=== PATIENT | female | born 1945 | race Caucasian/White ===

== ENCOUNTER 2016-10-18 08:35 | Outpatient (CLI) | payer MEDICARE | END 2016-10-18 23:59 | DX: E78.2 Mixed hyperlipidemia (principal); E11.9 Type 2 diabetes mellitus without complications; Z79.899 Other long term (current) drug therapy ==

== ENCOUNTER 2016-12-31 11:20 | Outpatient (CLI) | payer MEDICARE | END 2016-12-31 11:21 | disposition home or self-care (01) | LOC: LAB.R 11:20 | PROVIDERS: ATTEND Internal Medicine | DX: N30.90 Cystitis, unspecified without hematuria (principal) | CPT/HCPCS: 87086 ==

== ENCOUNTER 2017-01-10 10:49 | Outpatient (CLI) | payer MEDICARE ==
--- NOTE | 2017-01-14 07:54 | Mammography Report ---
DIGITAL BILATERAL SCREENING MAMMOGRAM: 01/10/2017 CLINICAL HISTORY: A 71-year-old female in for routine screening mammogram. Patient does have a fami ly history with breast cancer. Patient had a daughter who had breast cancer at age 45. She has an a unt who had breast cancer. Patient has no breast surgical history. COMPARISON: 01/10/2007, 04/04/2008, 07/21/2009, 01/05/2011, 06/15/2012, 06/04/2013, 06/07/2014, 09/22, 10/21/2015 TECHNIQUE: Craniocaudad and oblique lateral views of each breast were obtained with Spre[employer] Full Fie ld digital mammography. FINDINGS: Moderately dense breasts are noted bilaterally. No significant clusters of calcification are seen. No suspicious masses are noted. No change is see n. IMPRESSION: BREASTS APPEAR RADIOGRAPHICALLY BENIGN. BIRADS CATEGORY 1 - NEGATIVE. RECOMMENDATIONS: Annual bilateral screening mammography. STANDARD QUALIFYING STATEMENTS 1. This examination was reviewed with the aid of Computer-Aided Detection (CAD). 2. A negative or benign imaging report should not delay biopsy if clinically suspicious findings are present. Consider surgical consultation if warranted. More than 5% of cancers are not identified by raul rudd. 3. Dense breasts may obscure an underlying neoplasm. JOB #: [id number] EXT JOB #:[id number]
== END 2017-01-10 10:50 | disposition home or self-care (01) ==
LOC: DI.N 10:49
PROVIDERS: ATTEND Physician Assistant Medical
DX: Z12.31 Encounter for screening mammogram for malignant neoplasm of breast (principal); Z80.3 Family history of malignant neoplasm of breast
CPT/HCPCS: 77067

== ENCOUNTER 2017-06-30 10:31 | Outpatient (CLI) | payer MEDICARE ==
--- NOTE | 2017-06-30 12:50 | XRAY Report ---
FOUR-VIEW LEFT KNEE: 06/30/2017 CLINICAL INDICATION: Fall, pain. FINDINGS: AP, lateral, bilateral oblique views of the left knee demonstrate mild osteoarthritis, wit h small osteophytes. There is no evidence of acute fracture or dislocation. No effusion is present. IMPRESSION: MILD LEFT KNEE OSTEOARTHRITIS. NO EVIDENCE OF ACUTE FRACTURE. JOB #: [id number] EXT JOB #:[id number]
== END 2017-06-30 10:32 | disposition home or self-care (01) ==
LOC: DI 10:31
PROVIDERS: ATTEND Physician Assistant Medical
DX: M17.12 Unilateral primary osteoarthritis, left knee (principal); Z91.81 History of falling

== ENCOUNTER 2017-08-03 14:49 | Outpatient (CLI) | payer MEDICARE ==
[2017-08-03 12:47] LABS: BASOPHILS # (AUTO) 0.1 10^3/uL (0.0-0.1); BASOPHILS % (AUTO) 0.6 %; EOSINOPHILS # (AUTO) 0.2 10^3/uL (0.0-0.7); EOSINOPHILS % (AUTO) 1.7 %; HGB - HEMOGLOBIN 14.2 g/dL (12.0-16.0); LYMPHOCYTES # (AUTO) 3.3 10^3/uL (1.5-3.5); LYMPHOCYTES % (AUTO) 30.6 %; MEAN CORPUSCULAR HEMOGLOBIN 32.4 pg (27.0-31.0); MEAN CORPUSCULAR HGB CONC 33.8 g/dL (32.0-36.0); MEAN CORPUSCULAR VOLUME 95.9 fL (81.0-99.0); MEAN PLATELET VOLUME 7.8 fL (7.9-10.8); MONOCYTES # (AUTO) 0.7 10^3/uL (0.0-1.0); MONOCYTES % (AUTO) 6.6 %; NEUTROPHILS # (AUTO) 6.5 10^3/uL (1.5-6.6); NEUTROPHILS % (AUTO) 60.5 %; NUCLEATED RED BLOOD CELLS AUTO 0.1 /100WBC; RED BLOOD COUNT 4.38 10^6/uL (4.20-5.40); RED CELL DISTRIBUTION WIDTH 12.8 % (12.0-15.0); UNCORRECTED WHITE BLOOD COUNT 10.7 x10^3/uL; WHITE BLOOD COUNT 10.7 x10^3/uL (4.8-10.8)
[2017-08-03 13:07] LABS: ALBUMIN/GLOBULIN RATIO 1.5 (1.0-2.2); BILIRUBIN,TOTAL 0.8 mg/dL (0.2-1.0); BUN - BLOOD UREA NITROGEN 12 mg/dL (6-20); CALCIUM 9.6 mg/dL (8.5-10.3); CARBON DIOXIDE - CO2 30 mmol/L (21-32); CHLORIDE 95 mmol/L (101-111); CHOL/HDL RATIO 2.4 (<4.4); CHOLESTEROL 138 mg/dL; CREATININE 0.7 mg/dL (0.4-1.0); GFR - MDRD 82 (>89); GLUCOSE 103 mg/dL (70-100); HDL CHOLESTEROL 58 mg/dL; LDL/HDL RATIO 0.7 (<4.4); POTASSIUM 3.4 mmol/L (3.5-5.0); SODIUM 136 mmol/L (135-145); TOTAL PROTEIN 6.8 g/dL (6.7-8.2); TRIGLYCERIDES 194 mg/dL; VLDL CHOLESTEROL 39 mg/dL
[2017-08-03 16:10] LABS: HEMOGLOBIN A1C 0.69 g/dL
== END 2017-08-03 14:50 | disposition home or self-care (01) ==
LOC: LAB.N 14:49
PROVIDERS: ATTEND Physician Assistant Medical
DX: E55.9 Vitamin D deficiency, unspecified (principal); Z79.899 Other long term (current) drug therapy; E78.2 Mixed hyperlipidemia; E11.9 Type 2 diabetes mellitus without complications; F32.9 Major depressive disorder, single episode, unspecified; M79.7 Fibromyalgia; I10 Essential (primary) hypertension; Z11.59 Encounter for screening for other viral diseases; Z72.89 Other problems related to lifestyle
CPT/HCPCS: 36415; 80053; 80061; 82306; 83036; 84443; 85025; 86803

== ENCOUNTER 2017-08-24 02:31 | Outpatient (CLI) | payer MEDICARE | END 2017-08-24 02:32 | disposition EMS.NT | LOC: EMS 02:31 | PROVIDERS: ATTEND Surgery | DX: R06.00 Dyspnea, unspecified (principal) ==

== ENCOUNTER 2017-08-29 09:41 | Emergency (ER) | payer MEDICARE ==
--- NOTE | 2017-08-29 11:38 | XRAY Preliminary Report ---
Exam: XR CHEST 2 VIEW X-RAY IMPRESSION: 1. No acute cardiopulmonary findings or change. [facility] SITE ID: [id number]
--- NOTE | 2017-08-29 11:38 | XRAY Report ---
EXAM: CHEST RADIOGRAPHY EXAM DATE: 08/29/2017 10:47 AM. CLINICAL HISTORY: Cough, shortness of breath. COMPARISON: 03/15/2016, 07/16/2014. TECHNIQUE: 2 views. FINDINGS: Lungs/Pleura: Small patchy opacity left base near the cardiac apex appears similar to 07/16/2014, con sistent with mildly prominent epicardial fat pad. Lungs appear unchanged. No consolidation or vascula r congestion. No pneumothorax or pleural effusion. Mediastinum: Normal cardiomediastinal silhouette. Other: No acute fracture. IMPRESSION: 1. No acute cardiopulmonary findings or change. [facility] Referring Provider Line: [phone] SITE ID: [id number]
--- NOTE | 2017-08-29 11:42 | ED Physician Documentation ---
PD HPI NVD - Stated complaint Stated Complaint: COUGH,DIARRHEA,FLU LIKE SYMPTOMS - Chief complaint Chief Complaint: Resp - History obtained from History obtained from: Patient - History of Present Illness Timing - onset: How many days ago (3-4 days ago, abrupt onset of chills, weakness, aches, nausea, diarrhea and cough. Poor appetite and feeling dehydrated. Seen by PCP this morning and referred to ED for further eval/labs and treatment, likely IV fluids and meds.) Timing - duration: Days Timing - details: Abrupt onset, Still present Associated symptoms: Fever, Loss of appetite, Weight loss (several lbs in just few days.). No: Abdominal pain, Hematemesis, Melena, Near syncope / syncope, Dysuria Contributing factors: No: Sick contact, Bad food, Travel, Recent antibiotics Improved by: No: Eating, Vomiting Worsened by: Eating Similar symptoms before: Has not had sx before Recently seen: Clinic Review of Systems Constitutional: reports: Fever, Chills, Myalgias Nose: reports: Congestion. denies: Rhinorrhea / runny nose Throat: denies: Sore throat Cardiac: denies: Chest pain / pressure, Palpitations Respiratory: reports: Dyspnea, Cough GI: reports: Nausea, Vomiting (just couple times), Diarrhea. denies: Abdominal Pain : denies: Dysuria, Frequency Skin: denies: Rash, Lesions Musculoskeletal: denies: Neck pain, Back pain, Extremity swelling Neurologic: reports: Generalized weakness. denies: Focal weakness, Numbness, Near syncope, Confused, Altered mental status, Headache Endocrine: reports: Weight loss. denies: Polydypsia, Easy bruising / bleeding Immunocompromised: denies: Immunocompromised PD PAST MEDICAL HISTORY - Past Medical History Past Medical History: Yes Cardiovascular: Hypertension, High cholesterol Respiratory: COPD Endocrine/Autoimmune: Type 2 diabetes - Present Medications Home Medications: Ambulatory Orders Medication Instructions Recorded Confirmed Albuterol Sulfate [Ventolin Hfa] 2 puffs IH Q4H PRN #1 hfa.aer.ad 03/15/16 LORazepam [Ativan] 0.5 mg PO Q6H PRN #7 tablet 03/15/16 Lisinopril 03/15/16 Simvastatin 03/15/16 hydroCHLOROthiazide 03/15/16 [Hydrochlorothiazide] metFORMIN [Glucophage] 03/15/16 Albuterol Sulf [Ventolin Hfa 1 - 2 puffs INH Q4HR PRN #1 inhaler 08/29/17 Inhaler] Dexamethasone [Decadron] 4 mg PO DAILY #5 tablet 08/29/17 Diphenoxylate HCl/Atropine 1 each PO Q6H PRN #12 tablet 08/29/17 [Diphenoxylate-Atrop 2.5-0.025] Ondansetron Odt [Zofran] 4 mg TL Q6H PRN #15 tablet 08/29/17 Potassium Chloride 10 meq PO DAILY #10 tablet.er 08/29/17 - Allergies Allergies/Adverse Reactions: Allergies Allergy/AdvReac Type Severity Reaction Status Date / Time No Known Drug Allergies Allergy Verified 03/15/16 14:59 - Social History Does the pt smoke?: Yes Smoking Status: Current every day smoker Does the pt drink ETOH?: No Does the pt have substance abuse?: No - Family History Family history: reports: Non contributory PD ED PE NORMAL - Vitals Vital signs reviewed: Yes - General General: Alert and oriented X 3, Well developed/nourished - HEENT HEENT: Ears normal, Pharynx benign. No: Moist mucous membranes - Neck Neck: Supple, no meningeal sign, No adenopathy - Cardiac Cardiac: RRR, No murmur - Respiratory Respiratory: No respiratory distress. No: Clear bilaterally (some scattered wheezes) - Abdomen Abdomen: Soft, Non tender, Non distended, No organomegaly. No: Normal bowel sounds (diminished) - Female Female : Deferred - Rectal Rectal: Deferred - Back Back: No CVA TTP - Derm Derm: Normal color, Warm and dry - Extremities Extremities: No tenderness to palpate, Normal ROM s pain, No edema, No calf tenderness / cord - Neuro Neuro: Alert and oriented X 3, hydraulic tester 2-12 intact, No motor deficit, Normal speech Eye Opening: Spontaneous Motor: Obeys Commands Verbal: Oriented GCS Score: 15 - Psych Psych: Normal mood, Normal affect Results - Vitals Vitals: Vital Signs - 24 hr 08/29/17 08/29/17 08/29/17 09:57 12:00 14:07 Temperature 36.3 C L 36.4 C L Heart Rate 91 93 83 Respiratory 18 20 12 Rate Blood Pressure 114/65 111/65 119/74 O2 Saturation 93 95 95 08/29/17 08/29/17 16:00 16:55 Temperature 36 C L 36.3 C L Heart Rate 74 75 Respiratory 18 18 Rate Blood Pressure 108/63 133/74 H O2 Saturation 95 95 Oxygen O2 Source Room air - Labs Labs: Microbiology 08/29/17 12:07 Clostridium difficile (PCR) - Final Stool 08/29/17 12:07 Campylobacter Antigen Assay - Final Stool - Watery Consistency Laboratory Tests 08/29/17 08/29/17 08/29/17 12:10 12:10 12:10 WBC 10.1 RBC 5.11 Hgb 16.4 H Hct 48.0 H MCV 94.0 MCH 32.1 H MCHC 34.2 RDW 12.9 Plt Count 275 MPV 7.7 L Neut # 6.6 Lymph # 2.4 [place] # 1.1 H Eos # 0.0 Baso # 0.1 Absolute Nucleated RBC 0.01 Nucleated RBC % 0.1 Sodium 136 Potassium 2.9 L Chloride 90 L Carbon Dioxide 23 Anion Gap 23.0 H BUN 33 H Creatinine 1.0 Estimated GFR (MDRD) 55 L Glucose 124 H Calcium 9.3 Magnesium 1.9 Total Bilirubin 1.0 AST 33 ALT 26 Alkaline Phosphatase 74 Total Protein 7.5 Albumin 4.4 Globulin 3.1 Albumin/Globulin Ratio 1.4 Lipase 34 - Rads (name of study) chest Radiology: Prelim report reviewed (no infiltrates/acute process) PD MEDICAL DECISION MAKING - ED course Complexity details: reviewed results, re-evaluated patient (feeling improved moderately but still ill feeling after meds and fluids. Taking orally okay. Sounds flu-like but with prominent diarrhea, so did C.Diff and stool culture, which are prelim negative. ), considered differential, d/w patient Departure - Departure Disposition: 01 Home, Self Care Clinical Impression: Dehydration, Hypokalemia, Flu-like symptoms Upper respiratory infection Qualifiers: URI type: unspecified URI Qualified Code(s): J06.9 - Acute upper respiratory infection, unspecified Diarrhea Qualifiers: Diarrhea type: presumed infectious Qualified Code(s): R19.7 - Diarrhea, unspecified Condition: Stable Record reviewed to determine appropriate education?: Yes Follow-Up: Indu Zhang PA-C [Primary Care Provider] - Prescriptions: Albuterol Sulf [Ventolin Hfa Inhaler] 1 - 2 puffs INH Q4HR PRN #1 inhaler PRN Reason: Shortness Of Air/Wheezing Dexamethasone [Decadron] 4 mg PO DAILY #5 tablet Diphenoxylate HCl/Atropine [Diphenoxylate-Atrop 2.5-0.025] 1 each PO Q6H PRN # 12 tablet PRN Reason: Diarrhea Ondansetron Odt [Zofran] 4 mg TL Q6H PRN #15 tablet PRN Reason: Nausea / Vomiting Potassium Chloride 10 meq PO DAILY #10 tablet.er Comments: Small frequent fluids and bland food. Use ondansetron if needed for nausea. Lomotil if needed for diarrhea though decrease the use of that if the diarrhea is lessening so does not cause rebound constipation. This likely is a viral type illness. For your cough, use albuterol inhaler 2 puffs 4 times a day for the next 7-10 days. Add Decadron steroid for the inflammation of the airways daily for 5 more days. Follow-up with your primary care in the next 2-3 days for recheck. Return sooner if worse. Your potassium was also low likely from the diarrhea and perhaps some of your medications. Add a potassium supplement daily for the next week. Discharge Date/Time: 08/29/17 17:00
[2017-08-29 12:15] LABS: BASOPHILS # (AUTO) 0.1 10^3/uL (0.0-0.1); BASOPHILS % (AUTO) 0.8 %; EOSINOPHILS % (AUTO) 0.1 %; HGB - HEMOGLOBIN 16.4 g/dL (12.0-16.0); LYMPHOCYTES # (AUTO) 2.4 10^3/uL (1.5-3.5); LYMPHOCYTES % (AUTO) 23.3 %; MEAN CORPUSCULAR HEMOGLOBIN 32.1 pg (27.0-31.0); MEAN CORPUSCULAR HGB CONC 34.2 g/dL (32.0-36.0); MEAN PLATELET VOLUME 7.7 fL (7.9-10.8); MONOCYTES # (AUTO) 1.1 10^3/uL (0.0-1.0); MONOCYTES % (AUTO) 10.8 %; NEUTROPHILS # (AUTO) 6.6 10^3/uL (1.5-6.6); PLT - PLATELET COUNT 275 10^3/uL (130-450); RED BLOOD COUNT 5.11 10^6/uL (4.20-5.40); RED CELL DISTRIBUTION WIDTH 12.9 % (12.0-15.0); WHITE BLOOD COUNT 10.1 x10^3/uL (4.8-10.8)
[2017-08-29 12:29] LABS: ALBUMIN 4.4 g/dL (3.2-5.5); ALBUMIN/GLOBULIN RATIO 1.4 (1.0-2.2); CALCIUM 9.3 mg/dL (8.5-10.3); TOTAL PROTEIN 7.5 g/dL (6.7-8.2)
[2017-08-29] MEDS ORDERED: SODIUM CHLORIDE 0.9% 1,000 ML IV ONE (12:52)
[2017-08-29] MEDS ORDERED: DIPHENOX/ATROPINE 2.5/0.025 MG TABLET PO STA (12:52)
[2017-08-29] MEDS ORDERED: ONDANSETRON 4 MG/2 ML VIAL IVP STA (12:52)
[2017-08-29] MEDS ORDERED: POTASSIUM CHLOR 10 MEQ/100 ML 10 MEQ/100 ML BAG IV ONE (14:13)
[2017-08-29] MEDS ORDERED: DEXAMETHASONE 10 MG/ML VIAL IVP STA (16:21)
[2017-08-29 16:56] VITALS: BP 133/74
== END 2017-08-29 17:00 | disposition home or self-care (01) ==
LOC: ED 09:41
DX: E86.0 Dehydration (principal); E87.6 Hypokalemia; J06.9 Acute upper respiratory infection, unspecified; R19.7 Diarrhea, unspecified; J44.9 Chronic obstructive pulmonary disease, unspecified; E11.9 Type 2 diabetes mellitus without complications; Z79.84 Long term (current) use of oral hypoglycemic drugs; I10 Essential (primary) hypertension; F17.200 Nicotine dependence, unspecified, uncomplicated
CPT/HCPCS: 36415; 71046; 80053; 83690; 83735; 85025; 87045; 87046; 87493; 96365; 96375; 99284; A9270

== ENCOUNTER 2017-09-06 10:30 | Outpatient (CLI) | payer MEDICARE ==
[2017-09-06 13:22] LABS: ALBUMIN 3.9 g/dL (3.2-5.5); ALBUMIN/GLOBULIN RATIO 1.4 (1.0-2.2); BILIRUBIN,TOTAL 0.5 mg/dL (0.2-1.0); CALCIUM 9.2 mg/dL (8.5-10.3); CREATININE 0.8 mg/dL (0.4-1.0); TOTAL PROTEIN 6.6 g/dL (6.7-8.2)
== END 2017-09-06 10:31 | disposition home or self-care (01) ==
LOC: LAB.N 10:30
PROVIDERS: ATTEND Physician Assistant Medical
DX: E87.6 Hypokalemia (principal)
CPT/HCPCS: 36415; 80053

== ENCOUNTER 2017-09-08 08:00 | Outpatient (CLI) | payer MEDICARE | END 2017-09-08 08:01 | disposition home or self-care (01) | LOC: LAB.R 08:00 | PROVIDERS: ATTEND Internal Medicine | DX: N30.00 Acute cystitis without hematuria (principal) | CPT/HCPCS: 87086 ==

== ENCOUNTER 2017-09-22 08:00 | Outpatient (CLI) | payer MEDICARE ==
[2017-09-22 19:18] LABS: CALCIUM 9.4 mg/dL (8.5-10.3); CREATININE 0.7 mg/dL (0.4-1.0)
== END 2017-09-22 08:01 | disposition home or self-care (01) ==
LOC: LAB.N 08:00
PROVIDERS: ATTEND Internal Medicine
DX: E87.6 Hypokalemia (principal)
CPT/HCPCS: 36415; 80048

== ENCOUNTER 2017-10-12 11:59 | Outpatient (CLI) | payer MEDICARE | END 2017-10-12 12:00 | disposition EMS.NT | LOC: EMS 11:59 | PROVIDERS: ATTEND Surgery | DX: R45.89 Other symptoms and signs involving emotional state (principal) ==

== ENCOUNTER 2017-10-12 12:49 | Emergency (ER) | payer MEDICARE ==
[2017-10-12 13:01] VITALS: BP 147/103
--- NOTE | 2017-10-12 13:57 | ED Physician Documentation ---
PD HPI MHE - Stated complaint Stated Complaint: SI - Chief complaint Chief Complaint: MHE - History obtained from History obtained from: Patient, Friend - History of Present Illness Primary symptom: Suicidal ideation Timing - onset: Other ("a while") Pain level max: 0 Pain level now: 0 Contributing factors: Other (states her rent is being increased and she will be homeless) Similar symptoms before: Diagnosis (depression.) - Additional information Additional information: Patient is a 72-year-old female with a long-standing history of depression. She states she has been on citalopram 40 mg for the last several years. No changes to this. Has not attempted suicide in the past but has seen several counselors. Does not currently have a counselor. States that her rent is being raised and she will soon be homeless so she called her friend and said she is tired of "climbing mountains". She states that she feels suicidal now but does not have a plan. Review of Systems Ten Systems: 10 systems reviewed and negative Constitutional: denies: Fever, Chills Ears: denies: Ear pain Nose: denies: Rhinorrhea / runny nose, Congestion Throat: denies: Sore throat Cardiac: denies: Chest pain / pressure Respiratory: denies: Cough GI: denies: Nausea, Vomiting, Diarrhea Skin: denies: Rash Musculoskeletal: denies: Neck pain, Back pain Neurologic: denies: Headache Psychiatric: denies: Hallucinations PD PAST MEDICAL HISTORY - Past Medical History Past Medical History: Yes Cardiovascular: Hypertension, High cholesterol Respiratory: COPD Endocrine/Autoimmune: Type 2 diabetes - Present Medications Home Medications: Ambulatory Orders Medication Instructions Recorded Confirmed LORazepam [Ativan] 0.5 mg PO Q6H PRN #7 tablet 03/15/16 Lisinopril 03/15/16 Simvastatin 03/15/16 hydroCHLOROthiazide 03/15/16 [Hydrochlorothiazide] metFORMIN [Glucophage] 03/15/16 Albuterol Sulf [Ventolin Hfa 1 - 2 puffs INH Q4HR PRN #1 inhaler 08/29/17 Inhaler] Diphenoxylate HCl/Atropine 1 each PO Q6H PRN #12 tablet 08/29/17 [Diphenoxylate-Atrop 2.5-0.025] Potassium Chloride 10 meq PO DAILY #10 tablet.er 08/29/17 Citalopram [CeleXA] 10 mg PO ONCE 10/12/17 10/12/17 - Allergies Allergies/Adverse Reactions: Allergies Allergy/AdvReac Type Severity Reaction Status Date / Time No Known Drug Allergies Allergy Verified 10/12/17 13:01 - Social History Does the pt smoke?: Yes Smoking Status: Current every day smoker Does the pt drink ETOH?: No Does the pt have substance abuse?: No PD ED PE NORMAL - Vitals Vital signs reviewed: Yes - General General: Alert and oriented X 3, No acute distress - HEENT HEENT: Moist mucous membranes - Neck Neck: Supple, no meningeal sign - Cardiac Cardiac: RRR, Strong equal pulses - Respiratory Respiratory: No respiratory distress, Clear bilaterally - Abdomen Abdomen: Soft, Non tender, Non distended - Derm Derm: Warm and dry - Neuro Neuro: Alert and oriented X 3 - Psych Psych: Other (angry, irritable) Results - Vitals Vitals: Vital Signs - 24 hr 10/12/17 10/12/17 12:59 15:08 Temperature 36.4 C L Heart Rate 84 78 Respiratory 16 16 Rate Blood Pressure 147/103 H O2 Saturation 98 Oxygen O2 Source Room air - Labs Labs: Laboratory Tests 10/12/17 10/12/17 13:18 13:18 WBC 9.4 RBC 4.47 Hgb 14.6 Hct 42.9 MCV 95.9 MCH 32.6 H MCHC 34.0 RDW 13.3 Plt Count 301 MPV 7.1 L Neut # 5.6 Lymph # 2.6 [place] # 0.9 Eos # 0.2 Baso # 0.1 Absolute Nucleated RBC 0.00 Nucleated RBC % 0.0 Sodium 137 Potassium 3.6 Chloride 99 L Carbon Dioxide 27 Anion Gap 11.0 BUN 15 Creatinine 0.6 Estimated GFR (MDRD) 98 Glucose 110 H Calcium 9.3 Total Bilirubin 0.8 AST 23 ALT 18 Alkaline Phosphatase 68 Total Protein 6.8 Albumin 3.9 Globulin 2.9 Albumin/Globulin Ratio 1.3 Lipase 24 Salicylates < 6.0 Acetaminophen < 10 L Ethyl Alcohol < 5.0 PD MEDICAL DECISION MAKING - ED course Complexity details: reviewed results, re-evaluated patient, considered differential, d/w patient, d/w family, d/w business solutions consultant ED course: Patient is medically clear for psychiatric care. Social work was consulted and evaluated the patient. Her family member will give her the difference in rent so that she can stay in her apartment. She is unable to contract for safety and will follow-up as an outpatient with a psychiatrist. She is comfortable with this plan as is her friend. Patient counseled regarding signs and symptoms for which I believe and urgent re-evaluation would be necessary. Patient with good understanding of and agreement to plan and is comfortable going home at this time This document was made in part using voice recognition software. While efforts are made to proofread this document, sound alike and grammatical errors may occur. Departure - Departure Disposition: 01 Home, Self Care Clinical Impression: Depression Qualifiers: Depression Type: unspecified Qualified Code(s): F32.9 - Major depressive disorder, single episode, unspecified Condition: Good Instructions: ED Depression Follow-Up: Indu Zhang PA-C [Primary Care Provider] - Within 1 week Comments: Return if you worsen. Follow up with your doctor for further care. Crisis Line and is available to talk to someone [email or web address] is also available to chat with someone online if you prefer. There are also many resources on this website and apps for your phone to help with your mental health Discharge Date/Time: 10/12/17 15:09
[2017-10-12 13:58] LABS: BASOPHILS # (AUTO) 0.1 10^3/uL (0.0-0.1); BASOPHILS % (AUTO) 1.3 %; EOSINOPHILS # (AUTO) 0.2 10^3/uL (0.0-0.7); EOSINOPHILS % (AUTO) 1.9 %; HGB - HEMOGLOBIN 14.6 g/dL (12.0-16.0); LYMPHOCYTES # (AUTO) 2.6 10^3/uL (1.5-3.5); LYMPHOCYTES % (AUTO) 27.8 %; MEAN CORPUSCULAR HEMOGLOBIN 32.6 pg (27.0-31.0); MEAN CORPUSCULAR VOLUME 95.9 fL (81.0-99.0); MEAN PLATELET VOLUME 7.1 fL (7.9-10.8); MONOCYTES # (AUTO) 0.9 10^3/uL (0.0-1.0); MONOCYTES % (AUTO) 9.4 %; NEUTROPHILS # (AUTO) 5.6 10^3/uL (1.5-6.6); NEUTROPHILS % (AUTO) 59.6 %; PLT - PLATELET COUNT 301 10^3/uL (130-450); RED BLOOD COUNT 4.47 10^6/uL (4.20-5.40); RED CELL DISTRIBUTION WIDTH 13.3 % (12.0-15.0); WHITE BLOOD COUNT 9.4 x10^3/uL (4.8-10.8)
[2017-10-12 14:13] LABS: ALBUMIN 3.9 g/dL (3.2-5.5); ALBUMIN/GLOBULIN RATIO 1.3 (1.0-2.2); ALKALINE PHOSPHATASE 68 IU/L (42-121); ALT ALANINE AMINOTRANSFERASE 18 IU/L (10-60); AST ASPARTATE AMINOTRANSFERASE 23 IU/L (10-42); BILIRUBIN,TOTAL 0.8 mg/dL (0.2-1.0); BUN - BLOOD UREA NITROGEN 15 mg/dL (6-20); CALCIUM 9.3 mg/dL (8.5-10.3); CARBON DIOXIDE - CO2 27 mmol/L (21-32); CHLORIDE 99 mmol/L (101-111); CREATININE 0.6 mg/dL (0.4-1.0); GFR - MDRD 98 (>89); GLUCOSE 110 mg/dL (70-100); LIPASE 24 U/L (22-51); SALICYLATE < 6.0 mg/dL; SODIUM 137 mmol/L (135-145); TOTAL PROTEIN 6.8 g/dL (6.7-8.2)
[2017-10-12 14:14] LABS: ACETAMINOPHEN < 10 ug/mL (10-30)
== END 2017-10-12 15:09 | disposition home or self-care (01) ==
LOC: ED 12:49
DX: F32.9 Major depressive disorder, single episode, unspecified (principal); I10 Essential (primary) hypertension; E11.9 Type 2 diabetes mellitus without complications; E78.00 Pure hypercholesterolemia, unspecified; Z79.84 Long term (current) use of oral hypoglycemic drugs
CPT/HCPCS: 80053; 80307; 83690; 85025; 99283; G0480; 36415; 80320; 80329

== ENCOUNTER 2018-04-03 10:35 | Outpatient (CLI) | payer MEDICARE ==
--- NOTE | 2018-04-04 11:56 | Mammography Report ---
Procedure Date: 04/03/2018 Accession Number: [id number] / [id number] Procedure: MGN - Screening Mammo Dig Bilat CPT Code: FULL RESULT: EXAM: Screening Mammo Dig Bilat DATE: 04/03/2018 10:55 AM CLINICAL HISTORY: 72-year-old female with family history of breast cancer in her daughter at age 45. TECHNIQUE: Bilateral CC and MLO views were obtained. COMPARISON: 01/10/2017, 10/01/2015, 06/07/2014, 06/04/2013. FINDINGS: The breasts demonstrate scattered fibroglandular densities bilaterally. Typically benign coarse bilateral calcifications are identified. No suspicious masses, clustered microcalcifications, or regions of architectural distortion are identified. IMPRESSION: Benign findings RECOMMENDATION: Routine annual screening unless otherwise clinically indicated. BIRADS CATEGORY 2: Benign findings STANDARD QUALIFYING STATEMENTS: 1. This examination was reviewed with the aid of Computer-Aided Detection (CAD). 2. A negative or benign imaging report should not delay biopsy if clinically suspicious findings are present. Consider surgical consultation if warrented. More than 5% of cancers are not identified by imaging. 3. Dense breasts may obscure an underlying neoplasm.
== END 2018-04-03 10:36 | disposition home or self-care (01) ==
LOC: DI.N 10:35
PROVIDERS: ATTEND Radiology Diagnostic Radiology
DX: Z12.31 Encounter for screening mammogram for malignant neoplasm of breast (principal); Z80.3 Family history of malignant neoplasm of breast
CPT/HCPCS: 77067

== ENCOUNTER 2018-11-08 10:02 | Outpatient (CLI) | payer MEDICARE | END 2018-11-08 10:03 | disposition EMS.NT | LOC: EMS 10:02 | PROVIDERS: ATTEND Surgery | DX: Z03.89 Encounter for observation for other suspected diseases and conditions ruled out (principal) ==

== ENCOUNTER 2018-11-13 08:00 | Outpatient (CLI) | payer MEDICARE ==
[2018-11-13 18:50] LABS: BASOPHILS % (AUTO) 0.5 %; EOSINOPHILS # (AUTO) 0.2 10^3/uL (0.0-0.7); EOSINOPHILS % (AUTO) 1.9 %; HGB - HEMOGLOBIN 14.4 g/dL (12.0-16.0); LYMPHOCYTES # (AUTO) 3.1 10^3/uL (1.5-3.5); LYMPHOCYTES % (AUTO) 39.1 %; MEAN CORPUSCULAR HEMOGLOBIN 32.5 pg (27.0-31.0); MEAN CORPUSCULAR HGB CONC 33.3 g/dL (32.0-36.0); MEAN CORPUSCULAR VOLUME 97.7 fL (81.0-99.0); MEAN PLATELET VOLUME 7.7 fL (7.9-10.8); MONOCYTES # (AUTO) 0.8 10^3/uL (0.0-1.0); MONOCYTES % (AUTO) 9.7 %; NEUTROPHILS # (AUTO) 3.9 10^3/uL (1.5-6.6); NEUTROPHILS % (AUTO) 48.8 %; PLT - PLATELET COUNT 336 10^3/uL (130-450); RED BLOOD COUNT 4.43 10^6/uL (4.20-5.40); RED CELL DISTRIBUTION WIDTH 12.6 % (12.0-15.0); WHITE BLOOD COUNT 7.9 x10^3/uL (4.8-10.8)
[2018-11-13 19:10] LABS: ALBUMIN 3.9 g/dL (3.2-5.5); ALBUMIN/GLOBULIN RATIO 1.3 (1.0-2.2); BILIRUBIN,TOTAL 0.3 mg/dL (0.2-1.0); CALCIUM 9.3 mg/dL (8.5-10.3); CREATININE 0.7 mg/dL (0.4-1.0); TOTAL PROTEIN 6.8 g/dL (6.7-8.2)
[2018-11-13 19:50] LABS: HB2 TOTAL 15.7 g/dL; HEMOGLOBIN A1C 0.73 g/dL; HEMOGLOBIN A1C % 6.4 % (4.6-6.2)
== END 2018-11-13 23:59 | disposition home or self-care (01) ==
LOC: LAB.N 08:00
PROVIDERS: ATTEND Family Medicine
DX: E11.9 Type 2 diabetes mellitus without complications (principal); M15.9 Polyosteoarthritis, unspecified; I10 Essential (primary) hypertension
CPT/HCPCS: 36415; 80053; 83036; 84443; 85025

== ENCOUNTER 2019-01-04 13:59 | Emergency (ER) | payer MEDICARE ==
[2019-01-04] MEDS ORDERED: KETOROLAC 30 MG/ML VIAL IVP STA (14:28)
--- NOTE | 2019-01-04 14:30 | ED Physician Documentation ---
PD HPI ABD PAIN - Stated complaint Stated Complaint: PAIN IN UPPER LEFT QUADRANT - Chief complaint Chief Complaint: Abd Pain - History obtained from History obtained from: Patient - History of Present Illness Timing - onset: Other (73-year-old woman who has not had a colonoscopy she thinks at least 5 years. She has a history of cholecystectomy and tubal or ligation. Over the last with 6 weeks she is noticed a change in stool caliber. Where her stools used to be very regular, they have become smaller in caliber, sometimes explosive and sometimes constipated. Over the last 3 weeks she has had increasing dull left-sided abdominal pain. She notes no weight loss.) Review of Systems Ten Systems: 10 systems reviewed and negative Constitutional: denies: Fever, Chills Throat: reports: Reviewed and negative Cardiac: reports: Reviewed and negative Respiratory: reports: Reviewed and negative PD PAST MEDICAL HISTORY - Past Medical History Cardiovascular: Hypertension, High cholesterol Respiratory: COPD Endocrine/Autoimmune: Type 2 diabetes - Present Medications Home Medications: Ambulatory Orders Medication Instructions Recorded Confirmed LORazepam [Ativan] 0.5 mg PO Q6H PRN #7 tablet 03/15/16 Lisinopril 03/15/16 Simvastatin 03/15/16 hydroCHLOROthiazide 03/15/16 [Hydrochlorothiazide] metFORMIN [Glucophage] 03/15/16 Albuterol Sulf [Ventolin Hfa 1 - 2 puffs INH Q4HR PRN #1 inhaler 08/29/17 Inhaler] Diphenoxylate HCl/Atropine 1 each PO Q6H PRN #12 tablet 08/29/17 [Diphenoxylate-Atrop 2.5-0.025] Potassium Chloride 10 meq PO DAILY #10 tablet.er 08/29/17 Citalopram [CeleXA] 10 mg PO ONCE 10/12/17 10/12/17 Hydrocodone/Acetaminophen 1 - 2 each PO Q6H PRN #14 tablet 01/04/19 [Hydrocodon-Acetaminophen 5-325] Ibuprofen [Motrin] 800 mg PO Q8H PRN #30 tablet 01/04/19 - Allergies Allergies/Adverse Reactions: Allergies Allergy/AdvReac Type Severity Reaction Status Date / Time Sulfa (Sulfonamide Allergy Itching Verified 01/04/19 14:13 Antibiotics) - Social History Does the pt smoke?: Yes Smoking Status: Current every day smoker Does the pt drink ETOH?: No Does the pt have substance abuse?: No - Family History Family history: reports: Non contributory PD ED PE NORMAL - Vitals Vital signs reviewed: Yes - General General: Alert and oriented X 3, No acute distress - HEENT HEENT: PERRL, EOMI - Neck Neck: Supple, no meningeal sign, No bony TTP - Cardiac Cardiac: RRR, No murmur - Respiratory Respiratory: No respiratory distress, Clear bilaterally - Abdomen Abdomen: Other (Hyperactive bowel tones with very mild left-sided tenderness but no surgical signs, no masses) - Back Back: No CVA TTP, No spinal TTP - Derm Derm: Normal color, Warm and dry - Extremities Extremities: No edema, No calf tenderness / cord - Neuro Neuro: Alert and oriented X 3, Normal speech Results - Vitals Vitals: Vital Signs - 24 hr 01/04/19 01/04/19 14:06 16:55 Temperature 36.8 C 36.6 C Heart Rate 80 61 Respiratory 16 16 Rate Blood Pressure 151/83 H 126/84 H O2 Saturation 98 95 Oxygen O2 Source Room air - Labs Labs: Laboratory Tests 01/04/19 01/04/19 01/04/19 14:50 14:50 16:07 WBC 8.8 RBC 4.54 Hgb 14.6 Hct 43.7 MCV 96.1 MCH 32.2 H MCHC 33.5 RDW 12.7 Plt Count 291 MPV 7.1 L Neut # (Auto) 5.1 Lymph # (Auto) 2.7 [place] # (Auto) 0.7 Eos # (Auto) 0.2 Baso # (Auto) 0.1 Absolute Nucleated RBC 0.00 Nucleated RBC % 0.0 Sodium 139 Potassium 3.6 Chloride 101 Carbon Dioxide 27 Anion Gap 11.0 BUN 20 Creatinine 0.8 Estimated GFR (MDRD) 70 L Glucose 111 H Calcium 10.2 Total Bilirubin 0.4 AST 24 ALT 19 Alkaline Phosphatase 87 Total Protein 7.0 Albumin 4.3 Globulin 2.7 Albumin/Globulin Ratio 1.6 Lipase 42 Urine Color YELLOW Urine Clarity CLOUDY Urine pH 6.0 Ur Specific [place] 1.025 Urine Protein 100 H Urine Glucose (UA) NEGATIVE Urine Ketones TRACE Urine Occult Blood LARGE H Urine Nitrite NEGATIVE Urine Bilirubin SMALL H Urine Urobilinogen 0.2 (NORMAL) Ur Leukocyte Esterase SMALL H Urine RBC TNTC H Urine WBC 0-3 Ur Squamous Epith Cells MANY Squamous H Urine Bacteria Many H Ur Microscopic Review INDICATED Urine Culture Comments NOT INDICATED 01/04/19 17:50 WBC RBC Hgb Hct MCV MCH MCHC RDW Plt Count MPV Neut # (Auto) Lymph # (Auto) [place] # (Auto) Eos # (Auto) Baso # (Auto) Absolute Nucleated RBC Nucleated RBC % Sodium Potassium Chloride Carbon Dioxide Anion Gap BUN Creatinine Estimated GFR (MDRD) Glucose Calcium Total Bilirubin AST ALT Alkaline Phosphatase Total Protein Albumin Globulin Albumin/Globulin Ratio Lipase Urine Color YELLOW Urine Clarity HAZY Urine pH 6.0 Ur Specific [place] <=1.005 Urine Protein NEGATIVE Urine Glucose (UA) NEGATIVE Urine Ketones NEGATIVE Urine Occult Blood LARGE H Urine Nitrite NEGATIVE Urine Bilirubin NEGATIVE Urine Urobilinogen 0.2 (NORMAL) Ur Leukocyte Esterase NEGATIVE Urine RBC TNTC H Urine WBC 4-5 Ur Squamous Epith Cells FEW Squamous Urine Bacteria Rare Ur Microscopic Review INDICATED Urine Culture Comments NOT INDICATED - Rads (name of study) CT A/P Radiology: EMP read contemporaneously (Diverticulosis, 14 x 7 mm calculus in the left renal pelvis, otherwise unremarkable) PD MEDICAL DECISION MAKING - ED course ED course: 73-year-old woman with left-sided abdominal pain and change in stool caliber. She was specifically concerned about colon cancer and requested a colonoscopy. I discussed with her that this is not with us within the scope of an emergency department visit but we could do a CAT scan to better evaluate the cause of her pain, this was done and showed a large left renal pelvis stone which is likely causative. Initial urinalysis was contaminated, repeat with a cath UA negative for infection. Departure - Departure Disposition: 01 Home, Self Care Clinical Impression: Renal colic on left side Condition: Good Record reviewed to determine appropriate education?: Yes Instructions: ED Stone Renal W Colic Follow-Up: Rick Patterson DO [Physician No Access] - Within 1 week Prescriptions: Hydrocodone/Acetaminophen [Hydrocodon-Acetaminophen 5-325] 1 - 2 each PO Q6H PRN #14 tablet PRN Reason: pain Ibuprofen [Motrin] 800 mg PO Q8H PRN #30 tablet PRN Reason: PAIN &/OR FEVER Comments: As discussed your diagnostics show no evidence of colon cancer which you were worried about, but you do have a large left-sided kidney stone. Follow-up with urologist for this. Return if worse. Just because the CAT scan was negative for colon cancer does not mean you are not due for a colonoscopy. Discussed this with your primary care physician.
[2019-01-04] MEDS ORDERED: IOVERSOL 320 50 ML VIAL ONE (14:52)
[2019-01-04] MEDS ORDERED: IOVERSOL 320 100 ML VIAL IVP ONE ×2 (14:52→18:54)
[2019-01-04 14:58] LABS: BASOPHILS # (AUTO) 0.1 10^3/uL (0.0-0.1); EOSINOPHILS # (AUTO) 0.2 10^3/uL (0.0-0.7); EOSINOPHILS % (AUTO) 2.1 %; HGB - HEMOGLOBIN 14.6 g/dL (12.0-16.0); LYMPHOCYTES # (AUTO) 2.7 10^3/uL (1.5-3.5); LYMPHOCYTES % (AUTO) 31.2 %; MEAN CORPUSCULAR HEMOGLOBIN 32.2 pg (27.0-31.0); MEAN CORPUSCULAR HGB CONC 33.5 g/dL (32.0-36.0); MEAN CORPUSCULAR VOLUME 96.1 fL (81.0-99.0); MEAN PLATELET VOLUME 7.1 fL (7.9-10.8); MONOCYTES # (AUTO) 0.7 10^3/uL (0.0-1.0); MONOCYTES % (AUTO) 8.1 %; NEUTROPHILS # (AUTO) 5.1 10^3/uL (1.5-6.6); NEUTROPHILS % (AUTO) 57.6 %; PLT - PLATELET COUNT 291 10^3/uL (130-450); RED BLOOD COUNT 4.54 10^6/uL (4.20-5.40); RED CELL DISTRIBUTION WIDTH 12.7 % (12.0-15.0); WHITE BLOOD COUNT 8.8 x10^3/uL (4.8-10.8)
[2019-01-04 15:11] LABS: ALBUMIN 4.3 g/dL (3.2-5.5); ALBUMIN/GLOBULIN RATIO 1.6 (1.0-2.2); BILIRUBIN,TOTAL 0.4 mg/dL (0.2-1.0); CALCIUM 10.2 mg/dL (8.5-10.3); CREATININE 0.8 mg/dL (0.4-1.0)
[2019-01-04 16:15] LABS: BILIRUBIN,URINE SMALL (NEGATIVE); GLUCOSE, URINE (UA) NEGATIVE (NEGATIVE); KETONES,URINE (UA) TRACE mg/dL (NEGATIVE); LEUKOCYTE ESTERASE, URINE SMALL (NEGATIVE); NITRITE,URINE NEGATIVE (NEGATIVE); OCCULT BLOOD,URINE LARGE (NEGATIVE); PROTEIN,URINE 100 mg/dL (NEGATIVE); UROBILINOGEN,URINE 0.2 (NORMAL) E.U./dL (NORMAL)
[2019-01-04 16:23] LABS: CLARITY,URINE CLOUDY (CLEAR)
[2019-01-04 16:24] LABS: BACTERIA,URINE Many /HPF (None Seen); RBC,URINE TNTC /HPF (0-5); SQUAMOUS EPITHELIAL CELL,UR MANY Squamous (<= Few)
--- NOTE | 2019-01-04 17:33 | CT Report ---
Reason: IV and PO, abd pain Procedure Date: 01/04/2019 Accession Number: [id number] / [id number] Procedure: CT - Abdomen/Pelvis W CPT Code: FULL RESULT: EXAM: CT ABDOMEN AND PELVIS EXAM DATE: 01/04/2019 04:17 PM. CLINICAL HISTORY: Abdominal pain. COMPARISONS: None. TECHNIQUE: Routine helical CT imaging was performed through the abdomen and pelvis. IV contrast: 100 cc of Optiray 320. Enteric contrast: No. Reconstructions: Coronal and sagittal. In accordance with CT protocol optimization, one or more of the following dose reduction techniques were utilized for this exam: automated exposure control, adjustment of mA and/or KV based on patient size, or use of iterative reconstructive technique. FINDINGS: Lung Bases: Lung bases are clear. Heart size is normal. Coronary calcified plaque. Liver: Normal. No masses. Gallbladder/Bile Ducts: Status post cholecystectomy. Spleen: Normal. Pancreas: Normal. Adrenal Glands: Bilateral adrenal gland thickening and enlargement, left greater than right. Kidneys: Within the left renal pelvis is a calculus measuring 14 x 7.5 mm. There is mild edema along the left renal pelvis. Lower pole nonobstructing calculus is present measuring up to 10 mm. Mild left renal pelviectasis. No CT evidence of pyelonephritis. No ureteral calculi. Portions of the distal right ureter are obscured. Peritoneal Cavity/Bowel: Stomach is nondistended. No small bowel obstruction or small bowel wall thickening. Some fluid-filled jejunum noted. Contrast present within the mid distal small bowel and colon. Colonic diverticula are noted distally. No diverticulitis. No enlarged retroperitoneal or mesenteric lymph nodes. No free air. Fatty umbilical hernia. Appendix not visualized. No pericecal inflammatory changes. Pelvic Organs: Urinary bladder is unremarkable although partly obscured. No adnexal masses. No pelvic free fluid. No pelvic adenopathy. Vasculature: Vascular calcifications. No aneurysm. Bones: Degenerative changes of the lower thoracic and lumbar spine. Grade 1/2 anterolisthesis of L5 on S1 due to bilateral pars interarticularis defects at L5. Changes are seen from right hip arthroplasty. Left hip joint degenerative changes. No acute osseous abnormalities. Other: None. IMPRESSION: 1. Mild left pelvic and peripelvic edema surrounding a 14 x 7.5 mm calculus in the left renal pelvis. Mild left renal pelviectasis. Findings may be due to mild left renal pelvic obstruction and/or mild pyeloureteritis. No CT evidence of pyelonephritis. Nonobstructing left renal calculus. 2. Colonic diverticulosis. No diverticulitis. No bowel obstruction. No bowel wall thickening. 3. Status post cholecystectomy. 4. Unremarkable CT appearance of the pancreas. RADIA
[2019-01-04 17:58] LABS: BILIRUBIN,URINE NEGATIVE (NEGATIVE); GLUCOSE, URINE (UA) NEGATIVE (NEGATIVE); KETONES,URINE (UA) NEGATIVE (NEGATIVE); LEUKOCYTE ESTERASE, URINE NEGATIVE (NEGATIVE); NITRITE,URINE NEGATIVE (NEGATIVE); OCCULT BLOOD,URINE LARGE (NEGATIVE); PROTEIN,URINE NEGATIVE (NEGATIVE); UROBILINOGEN,URINE 0.2 (NORMAL) E.U./dL (NORMAL)
[2019-01-04 18:00] LABS: CLARITY,URINE HAZY (CLEAR)
[2019-01-04] MEDS ORDERED: ACETAMINOPHEN 325 MG TABLET PO STA (18:07)
[2019-01-04 18:14] LABS: BACTERIA,URINE Rare /HPF (None Seen); RBC,URINE TNTC /HPF (0-5); SQUAMOUS EPITHELIAL CELL,UR FEW Squamous (<= Few)
[2019-01-04 18:20] VITALS: BP 118/72
[2019-01-04] MEDS ORDERED: IOVERSOL 320 50 ML VIAL PO ONE (18:54)
== END 2019-01-04 18:35 | disposition home or self-care (01) ==
LOC: ED 13:59
DX: N20.0 Calculus of kidney (principal); I10 Essential (primary) hypertension; E11.9 Type 2 diabetes mellitus without complications; Z79.84 Long term (current) use of oral hypoglycemic drugs; F17.200 Nicotine dependence, unspecified, uncomplicated
CPT/HCPCS: 36415; 74177; 80053; 81001; 83690; 85025; 96374; 99283; A9270; Q9967; 81003; 87086

== ENCOUNTER 2019-01-22 08:40 | Outpatient (CLI) | payer MEDICAID, MEDICARE ==
--- NOTE | 2019-01-22 10:32 | Ultrasound Report ---
Reason: RENAL CALCULUS,LEFT Procedure Date: 01/22/2019 Accession Number: [id number] / [id number] Procedure: US - Retroperitoneal CPT Code: FULL RESULT: EXAM: RENAL ULTRASOUND EXAM DATE: 01/22/2019 09:35 AM. CLINICAL HISTORY: Renal calculus, left. COMPARISON: None. TECHNIQUE: Real-time scanning was performed with static images obtained. FINDINGS: Right Kidney: 12.4 cm. Mild right hydronephrosis, no calculus is identified. Simple appearing upper pole cyst measures up to 1.1 cm. Left Kidney: 11.5 cm. A 1.2 x 1.3 x 1 cm inferior pole calculus is identified causing focal lower pole hydronephrosis/pelviectasis. Left renal upper pole and mid pole are normal. Bladder: Bilateral jets seen. The prevoid bladder volume was 143 cc. The postvoid bladder volume was essentially 0 cc, complete emptying. Other: None. IMPRESSION: Focal left lower pole hydronephrosis due to obstructing left lower pole 1.2 cm calculus. Mild right renal hydronephrosis. RADIA
== END 2019-01-22 08:41 | disposition home or self-care (01) ==
LOC: DI 08:40
PROVIDERS: ATTEND Family Medicine
DX: N13.2 Hydronephrosis with renal and ureteral calculous obstruction (principal)
CPT/HCPCS: 76770

== ENCOUNTER 2019-02-06 17:21 | Outpatient (CLI) | payer MEDICARE | END 2019-02-06 17:22 | disposition critical access hospital (66) | LOC: EMS 17:21 | PROVIDERS: ATTEND Surgery | DX: R10.12 Left upper quadrant pain (principal) | CPT/HCPCS: A0425; A0429 ==

== ENCOUNTER 2019-02-06 17:43 | Emergency (ER) | payer MEDICARE ==
--- NOTE | 2019-02-06 18:38 | ED Physician Documentation ---
PD HPI ABD PAIN - Stated complaint Stated Complaint: FLANK PX - Chief complaint Chief Complaint: Abd Pain - History obtained from History obtained from: Patient - History of Present Illness Timing - onset: How many weeks ago (1) Timing - duration: Weeks (1) Timing - details: Gradual onset, Still present, Waxing and waning Quality: Aching, Sharp, Pain Location: LLQ Radiation: Left flank Improved by: No: Eating, Laying still, Position Worsened by: Breathing. No: Eating, Moving, Position Associated symptoms: Nausea, Vomiting. No: Fever Recently seen: Emergency Dept (3 days ago and had CT showing renal stone but not hydro. Had diverticula without signs of infection.) Review of Systems Constitutional: denies: Fever, Chills, Myalgias Nose: denies: Rhinorrhea / runny nose, Congestion Throat: denies: Sore throat Cardiac: denies: Chest pain / pressure Respiratory: denies: Cough GI: reports: Abdominal Pain, Nausea. denies: Vomiting : reports: Hematuria. denies: Dysuria, Frequency Skin: denies: Rash, Lesions Musculoskeletal: reports: Back pain PD PAST MEDICAL HISTORY - Past Medical History Cardiovascular: Hypertension, High cholesterol Respiratory: COPD Endocrine/Autoimmune: Type 2 diabetes - Past Surgical History Past Surgical History: No - Present Medications Home Medications: Ambulatory Orders Medication Instructions Recorded Confirmed LORazepam [Ativan] 0.5 mg PO Q6H PRN #7 tablet 03/15/16 Lisinopril 03/15/16 Simvastatin 03/15/16 hydroCHLOROthiazide 03/15/16 [Hydrochlorothiazide] metFORMIN [Glucophage] 03/15/16 Albuterol Sulf [Ventolin Hfa 1 - 2 puffs INH Q4HR PRN #1 inhaler 08/29/17 Inhaler] Diphenoxylate HCl/Atropine 1 each PO Q6H PRN #12 tablet 08/29/17 [Diphenoxylate-Atrop 2.5-0.025] Potassium Chloride 10 meq PO DAILY #10 tablet.er 08/29/17 Citalopram [CeleXA] 10 mg PO ONCE 10/12/17 10/12/17 Hydrocodone/Acetaminophen 1 - 2 each PO Q6H PRN #14 tablet 01/04/19 [Hydrocodon-Acetaminophen 5-325] Ibuprofen [Motrin] 800 mg PO Q8H PRN #30 tablet 01/04/19 Naproxen 375 mg PO BID #20 tablet 02/06/19 Ondansetron HCl [Zofran] 4 mg PO Q6H PRN #30 tablet 02/06/19 oxyCODONE [Roxicodone] 5 mg PO Q4-6H PRN #20 tablet 02/06/19 - Allergies Allergies/Adverse Reactions: Allergies Allergy/AdvReac Type Severity Reaction Status Date / Time Sulfa (Sulfonamide Allergy Itching Verified 02/06/19 17:55 Antibiotics) - Social History Does the pt smoke?: Yes Smoking Status: Current every day smoker Does the pt drink ETOH?: No Does the pt have substance abuse?: No - POLST Patient has POLST: No PD ED PE NORMAL - Vitals Vital signs reviewed: Yes - General General: Alert and oriented X 3, Well developed/nourished, Other (appears in pain) - Neck Neck: Supple, no meningeal sign, No adenopathy - Cardiac Cardiac: RRR, No murmur - Respiratory Respiratory: Clear bilaterally - Abdomen Abdomen: Normal bowel sounds, Soft, Non distended, No organomegaly, Other (tender left lateral abd but no guarding nor percussion tenderness. ) - Back Back: Other (left CVA tenderness) - Derm Derm: Normal color, Warm and dry, No rash - Extremities Extremities: No tenderness to palpate, Normal ROM s pain, No edema, No calf tenderness / cord - Neuro Neuro: Alert and oriented X 3, No motor deficit, Normal speech Results - Vitals Vitals: Oxygen O2 Source Room air - Labs Labs: Laboratory Tests 02/06/19 02/06/19 02/06/19 20:01 20:01 20:50 WBC 11.2 H RBC 4.88 Hgb 15.8 Hct 47.2 H MCV 96.7 MCH 32.4 H MCHC 33.5 RDW 12.3 Plt Count 319 MPV 9.3 Neut # (Auto) 6.5 Lymph # (Auto) 3.6 H Gregg # (Auto) 1.0 Eos # (Auto) 0.2 Baso # (Auto) 0.1 Absolute Nucleated RBC 0.00 Nucleated RBC % 0.0 Sodium 137 Potassium 2.9 L Chloride 96 L Carbon Dioxide 23 Anion Gap 18.0 H BUN 34 H Creatinine 0.8 Estimated GFR (MDRD) 70 L Glucose 124 H Calcium 9.8 Total Bilirubin 1.5 H AST 18 ALT 13 Alkaline Phosphatase 72 Total Protein 7.4 Albumin 4.4 Globulin 3.0 Albumin/Globulin Ratio 1.5 Lipase 38 Urine Color BROWN Urine Clarity CLOUDY Urine pH 5.0 Ur Specific [place] >=1.030 H Urine Protein 30 H Urine Glucose (UA) NEGATIVE Urine Ketones 40 H Urine Occult Blood LARGE H Urine Nitrite NEGATIVE Urine Bilirubin NEGATIVE Urine Urobilinogen 0.2 (NORMAL) Ur Leukocyte Esterase NEGATIVE Urine RBC TNTC H Urine WBC 0-3 Ur Squamous Epith Cells MOD Squamous H Urine Bacteria Rare Ur Microscopic Review INDICATED Urine Culture Comments NOT INDICATED PD MEDICAL DECISION MAKING - ED course Complexity details: reviewed old records (had renal stone on recent CT. has hematuria. Likely the stone is causing pain even if it is not maneuvered to be causing blockage per se. ), re-evaluated patient (improved with pain meds. Will give Rx. ), considered differential, d/w patient Departure - Departure Disposition: 01 Home, Self Care Clinical Impression: Left sided abdominal pain, Renal colic on left side Condition: Stable Record reviewed to determine appropriate education?: Yes Instructions: Abdominal Pain, ED Stone Renal W Colic Follow-Up: Rick Sen MD [Primary Care Provider] - Prescriptions: Naproxen 375 mg PO BID #20 tablet Ondansetron HCl [Zofran] 4 mg PO Q6H PRN #30 tablet PRN Reason: Nausea / Vomiting oxyCODONE [Roxicodone] 5 mg PO Q4-6H PRN #20 tablet PRN Reason: Pain Comments: Stay well-hydrated. Use naproxen anti-inflammatory twice daily with food for the next 7 to 10 days. Use ondansetron if needed for nausea. Add oxycodone if needed for pain every 6-8 hours. Follow-up with your primary care in the next couple of days, call for an appointment. Also likely follow-up with the urologist and call for an appointment. You do have blood in the urine and so it is sound likely that the pain you are having can be coming from the stone in the kidney. However whether to do something about that would be up to the urologist. Discharge Date/Time: 02/06/19 22:42
[2019-02-06] MEDS ORDERED: KETOROLAC 15 MG/ML VIAL IVP STA (19:11)
[2019-02-06] MEDS ORDERED: HYDROmorphone 1 MG/ML CARPUJECT IVP STA ×2 (19:11→21:51)
[2019-02-06] MEDS ORDERED: ONDANSETRON 4 MG/2 ML VIAL IVP STA (19:11)
[2019-02-06] MEDS ORDERED: LIDOCAINE-MPF 2% 8 ML in SODIUM CHLORIDE 0.9% 50 ML IV STA (19:12)
[2019-02-06 20:29] LABS: BASOPHILS # (AUTO) 0.1 10^3/uL (0.0-0.1); BASOPHILS % (AUTO) 0.4 %; EOSINOPHILS # (AUTO) 0.2 10^3/uL (0.0-0.7); EOSINOPHILS % (AUTO) 1.3 %; HGB - HEMOGLOBIN 15.8 g/dL (12.0-16.0); LYMPHOCYTES # (AUTO) 3.6 10^3/uL (1.5-3.5); LYMPHOCYTES % (AUTO) 31.9 %; MEAN CORPUSCULAR HEMOGLOBIN 32.4 pg (27.0-31.0); MEAN CORPUSCULAR HGB CONC 33.5 g/dL (32.0-36.0); MEAN CORPUSCULAR VOLUME 96.7 fL (81.0-99.0); MEAN PLATELET VOLUME 9.3 fL (7.9-10.8); MONOCYTES % (AUTO) 8.5 %; NEUTROPHILS # (AUTO) 6.5 10^3/uL (1.5-6.6); NEUTROPHILS % (AUTO) 57.5 %; PLT - PLATELET COUNT 319 10^3/uL (130-450); RED BLOOD COUNT 4.88 10^6/uL (4.20-5.40); RED CELL DISTRIBUTION WIDTH 12.3 % (12.0-15.0); WHITE BLOOD COUNT 11.2 x10^3/uL (4.8-10.8)
[2019-02-06 20:41] LABS: ALBUMIN 4.4 g/dL (3.2-5.5); ALBUMIN/GLOBULIN RATIO 1.5 (1.0-2.2); BILIRUBIN,TOTAL 1.5 mg/dL (0.2-1.0); CALCIUM 9.8 mg/dL (8.5-10.3); CREATININE 0.8 mg/dL (0.4-1.0); TOTAL PROTEIN 7.4 g/dL (6.7-8.2)
[2019-02-06 21:09] LABS: GLUCOSE, URINE (UA) NEGATIVE (NEGATIVE); KETONES,URINE (UA) 40 mg/dL (NEGATIVE); LEUKOCYTE ESTERASE, URINE NEGATIVE (NEGATIVE); NITRITE,URINE NEGATIVE (NEGATIVE); OCCULT BLOOD,URINE LARGE (NEGATIVE); PROTEIN,URINE 30 mg/dL (NEGATIVE); UROBILINOGEN,URINE 0.2 (NORMAL) E.U./dL (NORMAL)
[2019-02-06 21:13] LABS: BILIRUBIN,URINE NEGATIVE (NEGATIVE); CLARITY,URINE CLOUDY (CLEAR); ICTOTEST,URINE NEGATIVE
[2019-02-06 21:20] LABS: BACTERIA,URINE Rare /HPF (None Seen); RBC,URINE TNTC /HPF (0-5); SQUAMOUS EPITHELIAL CELL,UR MOD Squamous (<= Few)
[2019-02-06] MEDS ORDERED: oxyCODONE/ACET 5/325 Prepack 4 PO STA (21:52)
[2019-02-06] MEDS ORDERED: ONDANSETRON ODT 4 MG Prepack 2 TL PRN (21:52)
[2019-02-06 22:42] VITALS: BP 96/50
== END 2019-02-06 22:42 | disposition home or self-care (01) ==
LOC: EDUNIT# → ED 17:43
DX: N23 Unspecified renal colic (principal); K57.90 Diverticulosis of intestine, part unspecified, without perforation or abscess without bleeding; N20.0 Calculus of kidney; I10 Essential (primary) hypertension; E78.00 Pure hypercholesterolemia, unspecified; J44.9 Chronic obstructive pulmonary disease, unspecified; E11.9 Type 2 diabetes mellitus without complications; F17.200 Nicotine dependence, unspecified, uncomplicated; Z79.84 Long term (current) use of oral hypoglycemic drugs; Z79.51 Long term (current) use of inhaled steroids; Z79.891 Long term (current) use of opiate analgesic; Z79.1 Long term (current) use of non-steroidal anti-inflammatories (NSAID)
CPT/HCPCS: 36415; 80053; 81001; 83690; 85025; 96365; 96375; 96376; 99283; 99284; J1170; J7040; 81003; 87086

== ENCOUNTER 2019-02-21 10:17 | Day surgery (SDC) | payer MEDICAID, MEDICARE ==
[2019-02-21] MEDS ORDERED: LACTATED RINGERS 1,000 ML IV ONE (10:31)
[2019-02-21] MEDS ORDERED: fentaNYL 250 MCG/5 ML VIAL IVP ONE (13:18)
[2019-02-21] MEDS ORDERED: MIDAZOLAM 2 MG/2 ML VIAL IVP ONE (13:18)
[2019-02-21 14:07] VITALS: BP 143/75
== END 2019-02-21 10:18 | disposition home or self-care (01) ==
LOC: SDS 10:17
PROVIDERS: ATTEND Surgery
PROC: 0DBL8ZX Excision of Transverse Colon, Via Natural or Artificial Opening Endoscopic, Diagnostic (ICD-10-PCS; 2019-02-21)
PROC: 0DBN8ZX Excision of Sigmoid Colon, Via Natural or Artificial Opening Endoscopic, Diagnostic (ICD-10-PCS; 2019-02-21)
PROC: 0DBK8ZX Excision of Ascending Colon, Via Natural or Artificial Opening Endoscopic, Diagnostic (ICD-10-PCS; principal; 2019-02-21 11:45)
DX: R19.7 Diarrhea, unspecified (principal); R19.4 Change in bowel habit; R10.9 Unspecified abdominal pain; R63.4 Abnormal weight loss; K64.9 Unspecified hemorrhoids; N13.2 Hydronephrosis with renal and ureteral calculous obstruction; E11.9 Type 2 diabetes mellitus without complications; F17.210 Nicotine dependence, cigarettes, uncomplicated; Z68.31 Body mass index [BMI] 31.0-31.9, adult; Z79.84 Long term (current) use of oral hypoglycemic drugs
CPT/HCPCS: 45380; 83630; 87015; 87272; 87329; 87493; J3010; J7120

== ENCOUNTER 2019-03-15 11:49 | Outpatient (CLI) | payer MEDICAID, MEDICARE ==
[2019-03-15 18:55] LABS: BASOPHILS % (AUTO) 0.3 %; EOSINOPHILS # (AUTO) 0.2 10^3/uL (0.0-0.7); EOSINOPHILS % (AUTO) 2.6 %; HGB - HEMOGLOBIN 14.3 g/dL (12.0-16.0); LYMPHOCYTES # (AUTO) 3.1 10^3/uL (1.5-3.5); LYMPHOCYTES % (AUTO) 35.8 %; MEAN CORPUSCULAR HEMOGLOBIN 31.8 pg (27.0-31.0); MEAN CORPUSCULAR HGB CONC 31.6 g/dL (32.0-36.0); MEAN CORPUSCULAR VOLUME 100.9 fL (81.0-99.0); MEAN PLATELET VOLUME 9.5 fL (7.9-10.8); MONOCYTES # (AUTO) 0.7 10^3/uL (0.0-1.0); MONOCYTES % (AUTO) 8.1 %; NEUTROPHILS # (AUTO) 4.7 10^3/uL (1.5-6.6); PLT - PLATELET COUNT 297 10^3/uL (130-450); RED BLOOD COUNT 4.49 10^6/uL (4.20-5.40); RED CELL DISTRIBUTION WIDTH 12.8 % (12.0-15.0); WHITE BLOOD COUNT 8.8 x10^3/uL (4.8-10.8)
[2019-03-15 19:40] LABS: CALCIUM 9.3 mg/dL (8.5-10.3); CREATININE 0.7 mg/dL (0.4-1.0); MAGNESIUM 2.1 mg/dL (1.7-2.8)
[2019-03-15 20:02] LABS: FREE T4 (FREE THYROXINE) 1.16 ng/dL (0.58-1.64); THYROID STIMULATING HORMONE 1.64 uIU/mL (0.34-5.60)
== END 2019-03-15 23:59 | disposition home or self-care (01) ==
LOC: LAB.N 11:49
PROVIDERS: ATTEND Family Medicine
DX: R19.7 Diarrhea, unspecified (principal); E11.9 Type 2 diabetes mellitus without complications; R19.4 Change in bowel habit
CPT/HCPCS: 36415; 80048; 83735; 84439; 84443; 84481; 85025

== ENCOUNTER 2019-05-23 12:32 | Outpatient (CLI) | payer MEDICARE ==
--- NOTE | 2019-05-23 14:33 | XRAY Report ---
Reason: NEPHROLITHIASIS Procedure Date: 05/23/2019 Accession Number: [id number] / [id number] Procedure: XR - Abdomen 1 View X-Ray CPT Code: 67625 FULL RESULT: EXAM: ABDOMEN RADIOGRAPHY EXAM DATE: 05/23/2019 12:46 PM. CLINICAL HISTORY: Nephrolithiasis. COMPARISON: Renal ultrasound 01/22/2019, CT abdomen and pelvis 01/04/2019. TECHNIQUE: 1 view. FINDINGS: Bowel Gas Pattern: Within normal limits. No dilated loops. Calcifications: No evidence of radiopaque right nephrolithiasis. In the left kidney, is redemonstration of an approximate 17 mm maximal diameter radiopaque left renal pelvic calculus. Redemonstration of clustered nonobstructing lower pole calculi. There is linear calcification located lateral to the L2 vertebral body that is probably vascular. Other: Right hip arthroplasty. Moderate levoconvex lumbar scoliosis with advanced multilevel lumbar degenerative disk disease. Status post cholecystectomy. IMPRESSION: 1. There are no radiopaque right renal calculi. 2. Compared to prior exams, little change in radiopaque left renal pelvic calculus and in multiple small nonobstructing left lower pole calculi. RADIA
== END 2019-05-23 12:33 | disposition home or self-care (01) ==
LOC: DI 12:32
PROVIDERS: ATTEND Urology
DX: N20.0 Calculus of kidney (principal)
CPT/HCPCS: 74018

== ENCOUNTER 2019-05-30 13:34 | Outpatient (CLI) | payer MEDICARE ==
--- NOTE | 2019-05-30 14:40 | Mammography Report ---
Reason: ROUTINE MAMMO Procedure Date: 05/30/2019 Accession Number: [id number] / [id number] Procedure: MGN - Screening Mammo Dig Bilat CPT Code: FULL RESULT: EXAM: Screening Mammo Dig Bilat DATE: 05/30/2019 1:58 PM CLINICAL HISTORY: Routine screening. No reported personal history of breast cancer. Family history breast cancer in daughter at age 45. TECHNIQUE: (B) - Bilateral CC and MLO views were obtained. COMPARISON: 04/03/2018 through 07/21/2009 PARENCHYMAL PATTERN: (A) - The breasts demonstrate scattered fibroglandular densities bilaterally. FINDINGS: Right breast: There is an 8 mm one view asymmetry seen in the retroareolar plane 8 cm from the nipple on the MLO view only. No suspicious calcifications or areas of distortion. Left breast: There is a 16 mm grouping of calcifications in the 2:00 breast 9 cm from the nipple. There are no suspicious masses or areas of distortion. IMPRESSION: Incomplete examination. BI-RADS category 0. Right breast: 8 mm one view asymmetry retroareolar plane. Incomplete. BI-RADS Category 0. Additional imaging and possible ultrasound recommended. Left breast: 16 mm group of calcifications 2:00 breast. Incomplete. Additional imaging is recommended. RECOMMENDATION: (ADDMAM) - Recommend additional mammographic views. BI-RADS CATEGORY: (0) - Incomplete Examination - need additional evaluation. STANDARD QUALIFYING STATEMENTS: 1. This examination was not reviewed with the aid of Computer-Aided Detection (CAD). 2. A negative or benign imaging report should not preclude biopsy if clinically suspicious findings are present. 3. Dense breasts may obscure an underlying neoplasm. 4. This examination was reviewed without the aid of 3D breast imaging (tomosynthesis).
== END 2019-05-30 13:35 | disposition home or self-care (01) ==
LOC: DI.N 13:34
DX: Z12.31 Encounter for screening mammogram for malignant neoplasm of breast (principal); Z80.3 Family history of malignant neoplasm of breast
CPT/HCPCS: 77067

== ENCOUNTER 2019-06-12 09:36 | Outpatient (CLI) | payer MEDICARE ==
--- NOTE | 2019-06-12 12:28 | Mammography Report ---
Reason: ABN MAMMO - BILAT SPEC VIEWS Procedure Date: 06/12/2019 Accession Number: [id number] / [id number] Procedure: ROHIT - Diagnostic Dig Bilat CPT Code: FULL RESULT: EXAM: Diagnostic Dig Bilat DATE: 06/12/2019 10:19 AM CLINICAL HISTORY: Follow-up abnormal mammogram 05/30/2019 TECHNIQUE: (B) - Bilateral CC and MLO views were obtained. COMPARISON: 05/30/2019, 04/03/2018, 01/10/2017, 10/21/2015, 10/01/2015 and 06/07/2014 PARENCHYMAL PATTERN: (A) - The breasts demonstrate scattered fibroglandular densities bilaterally. FINDINGS: RIGHT BREAST: The density described on the right MLO projection does not persist on additional views. LEFT BREAST: In the upper outer left breast on MAGNIFICATION VIEWS there are 3 coarse calcifications which may be vascular in etiology seen best on the MLO projection. Inferior to these is a faint cluster of fine punctate calcifications probably corresponding to the calcifications seen on the 05/30/2019 mammogram. These are grossly similar to 2018. IMPRESSION: 1. Probably Benign. BI-RADS category 3. Left breast microcalcifications.. Suggest 6 month follow-up mammogram to include magnification views. 2. Negative right breast. RECOMMENDATION: (6MOS) - Recommend 6 month follow-up exam. Left breast BI-RADS CATEGORY: (3) - Probably Benign. STANDARD QUALIFYING STATEMENTS: 1. This examination was not reviewed with the aid of Computer-Aided Detection (CAD). 2. A negative or benign imaging report should not preclude biopsy if clinically suspicious findings are present. 3. Dense breasts may obscure an underlying neoplasm. 4. This examination was reviewed with the aid of 3D breast imaging (tomosynthesis).
== END 2019-06-12 09:37 | disposition home or self-care (01) ==
LOC: DI 09:36
PROVIDERS: ATTEND Family Medicine
DX: R92.8 Other abnormal and inconclusive findings on diagnostic imaging of breast (principal)
CPT/HCPCS: 77066

== ENCOUNTER 2019-07-06 13:11 | Outpatient (CLI) | payer MEDICARE, MEDICAID ==
--- NOTE | 2019-07-07 14:00 | XRAY Report ---
Reason: CHRONIC BACK PAIN Procedure Date: 07/06/2019 Accession Number: [id number] / [id number] Procedure: XRN - Lumbar Spine Complete CPT Code: Final Report FULL RESULT: EXAM: LUMBOSACRAL SPINE RADIOGRAPHY EXAM DATE: 07/06/2019 01:38 PM. CLINICAL HISTORY: Chronic back pain. COMPARISONS: 11/12/2011 4:04 PM. TECHNIQUE: 3 views. FINDINGS: Alignment: 8 mm, grade 1 anterolisthesis at L5 on S1 is stable. Stable mild levoscoliosis centered at L3. Bones: Five [id number]-[id number] lumbar vertebral bodies are present. No definitive acute fracture or bone lesion. Possible L5 pars defects. Degenerative changes: Progressive severe diffuse disk level degenerative changes with disk height loss and osteophytosis. Moderate lower lumbar facet DJD. Soft Tissues: Severe arthrosclerotic disease. The visualized bowel gas pattern is normal. IMPRESSION: 1. Stable grade 1 anterolisthesis of L5 on S1 with questionable pars defects. 2. Advanced diffuse degenerative changes throughout the lumbar spine have progressed compared to 2011. RADIA
== END 2019-07-06 13:12 | disposition home or self-care (01) ==
LOC: DI.N 13:11
PROVIDERS: ATTEND Family Medicine
DX: M51.36 Other intervertebral disc degeneration, lumbar region (principal); M47.816 Spondylosis without myelopathy or radiculopathy, lumbar region; M43.17 Spondylolisthesis, lumbosacral region; G89.29 Other chronic pain; F32.9 Major depressive disorder, single episode, unspecified; R19.7 Diarrhea, unspecified; J44.9 Chronic obstructive pulmonary disease, unspecified; E11.9 Type 2 diabetes mellitus without complications
CPT/HCPCS: 36415; 72110; 80048; 83036; 85025

== ENCOUNTER 2020-02-21 10:26 | Outpatient (CLI) | payer MEDICARE, MEDICAID ==
[2020-02-21 12:22] LABS: BASOPHILS # (AUTO) 0.1 10^3/uL (0.0-0.1); BASOPHILS % (AUTO) 0.5 %; EOSINOPHILS # (AUTO) 0.2 10^3/uL (0.0-0.7); HGB - HEMOGLOBIN 15.7 g/dL (12.0-16.0); MEAN CORPUSCULAR HEMOGLOBIN 31.2 pg (27.0-31.0); MEAN CORPUSCULAR VOLUME 97.4 fL (81.0-99.0); MEAN PLATELET VOLUME 9.4 fL (7.9-10.8); MONOCYTES # (AUTO) 0.7 10^3/uL (0.0-1.0); MONOCYTES % (AUTO) 6.5 %; NEUTROPHILS # (AUTO) 7.1 10^3/uL (1.5-6.6); NEUTROPHILS % (AUTO) 63.6 %; PLT - PLATELET COUNT 334 10^3/uL (130-450); RED BLOOD COUNT 5.04 10^6/uL (4.20-5.40); RED CELL DISTRIBUTION WIDTH 12.4 % (12.0-15.0); WHITE BLOOD COUNT 11.2 x10^3/uL (4.8-10.8)
[2020-02-21 13:34] LABS: HEMOGLOBIN A1C 0.68 g/dL; HEMOGLOBIN A1C % 5.8 % (4.6-6.2)
[2020-02-21 13:47] LABS: ALBUMIN 4.5 g/dL (3.2-5.5); ALBUMIN/GLOBULIN RATIO 1.7 (1.0-2.2); BILIRUBIN,TOTAL 0.6 mg/dL (0.2-1.0); CALCIUM 10.3 mg/dL (8.5-10.3); CREATININE 0.8 mg/dL (0.4-1.0); TOTAL PROTEIN 7.2 g/dL (6.7-8.2)
== END 2020-02-21 23:59 | disposition home or self-care (01) ==
LOC: LAB.WCP 10:26
PROVIDERS: ATTEND Family Medicine
DX: E11.9 Type 2 diabetes mellitus without complications (principal); I10 Essential (primary) hypertension; M79.7 Fibromyalgia
CPT/HCPCS: 36415; 80053; 83036; 84443; 85025

== ENCOUNTER 2020-04-10 14:17 | Outpatient (CLI) | payer MEDICARE, MEDICAID ==
--- NOTE | 2020-04-11 08:09 | Mammography Report ---
BILATERAL DIGITAL DIAGNOSTIC MAMMOGRAM 3D/2D: 04/10/2020 CLINICAL: 6 month follow-up left breast calcifications. Comparison is made to exams dated: 06/12/2019 mammogram, 05/30/2019 mammogram, 04/03/2018 mammogram, mammogram, 10/21/2015 mammogram, and 10/01/2015 mammogram - [facility]. Ther e are scattered fibroglandular elements in both breasts. There are stable grouped punctate calcifications in the left breast at 2 o'clock posterior depth. No other significant masses, calcifications, or other findings are seen in either breast. IMPRESSION: PROBABLY BENIGN The stable grouped punctate calcifications in the left breast are probably benign. A follow-up left mammogram in 6 months is recommended to demonstrate stability. This exam was interpreted at Station ID: [id number]. NOTE: For mammograms, a report in lay terms will be sent to the patient. Approximately 15% of breast malignancies will not be visualized mammographically. In the management of a palpable breast mass, a negative mammogram must not discourage biopsy of a clinically suspicious lesion. Electronically Signed By: Hanny Matute M.D. lk/:04/10/2020 15:30:19 ACR BI-RADS Category 3: Probably benign [id number] PARENCHYMAL PATTERN: (A) - The breast(s) demonstrate(s) scattered fibroglandular densities. BI-RADS CATEGORY: (3) - 3 Mammogram [id number] 6 month follow-up LATERALITY: (L)
== END 2020-04-10 14:18 | disposition home or self-care (01) ==
LOC: DI 14:17
PROVIDERS: ATTEND Family Medicine
DX: R92.1 Mammographic calcification found on diagnostic imaging of breast (principal)
CPT/HCPCS: 77066

== ENCOUNTER 2020-05-29 14:31 | Outpatient (CLI) | payer MEDICARE, MEDICAID | END 2020-05-29 14:32 | disposition critical access hospital (66) | LOC: EMS 14:31 | PROVIDERS: ATTEND Surgery | DX: R45.89 Other symptoms and signs involving emotional state (principal); Z63.79 Other stressful life events affecting family and household; Z59.9 Problem related to housing and economic circumstances, unspecified | CPT/HCPCS: A0425; A0429 ==

== ENCOUNTER 2020-05-29 14:53 | Emergency (ER) | payer MEDICARE, MEDICAID ==
--- NOTE | 2020-05-29 18:25 | ED Physician Documentation ---
History of Present Illness - Stated complaint Stated Complaint: MENTAL ANGUISH - Chief complaint Chief Complaint: MHE - Additonal information Additional information: 74-year-old female presents the emergency department with reported mental an guish. she has a long standing history of depression. Please see the social work note. Unfortunately she has been dealing with the loss of her beloved pet as well as family financial and emotional stressors. Her friend encouraged her to call 911 and [facility] brought her into the emergency department. At the time of my evaluation with her in the emergency department she denied SI. She expressed desire to be discharged home and she felt she had a safe plan and contracted for safety Review of Systems Constitutional: reports: Reviewed and negative Ears: reports: Reviewed and negative Throat: reports: Reviewed and negative Cardiac: reports: Reviewed and negative Respiratory: reports: Reviewed and negative GI: reports: Reviewed and negative : reports: Reviewed and negative Skin: reports: Reviewed and negative Psychiatric: reports: Depressed, Suicidal. denies: Homicidal, Hallucinations, Delusions, Anxiety, Insomnia PD PAST MEDICAL HISTORY - Past Medical History Past Medical History: Yes Cardiovascular: Hypertension, High cholesterol Respiratory: COPD Endocrine/Autoimmune: Type 2 diabetes GI: None : Kidney stones Psych: Depression, Anxiety Musculoskeletal: Osteoarthritis, Chronic back pain Derm: None - Past Surgical History Past Surgical History: No General: Cholecystectomy, Appendectomy Ortho: Hip replacement /QUALITY CONTROL LAB TECH: Tubal ligation - Present Medications Home Medications: Ambulatory Orders Medication Instructions Recorded Confirmed LORazepam [Ativan] 0.5 mg PO Q6H PRN #7 tablet 03/15/16 02/20/19 hydroCHLOROthiazide 25 mg PO DAILY 03/15/16 02/20/19 [Hydrochlorothiazide] lisinopriL [Lisinopril] 20 mg PO DAILY 03/15/16 02/20/19 metFORMIN [Glucophage] 500 mg PO BID 03/15/16 02/20/19 Albuterol Sulf [Ventolin Hfa 1 - 2 puffs INH Q4HR PRN #1 inhaler 08/29/17 02/20/19 Inhaler] Citalopram [CeleXA] 40 mg PO ONCE 10/12/17 02/20/19 Hydrocodone/Acetaminophen 1 - 2 each PO Q6H PRN #14 tablet 01/04/19 02/21/19 [Hydrocodon-Acetaminophen 5-325] Naproxen 375 mg PO BID #20 tablet 02/06/19 02/20/19 oxyCODONE [Roxicodone] 5 mg PO Q4-6H PRN #20 tablet 02/06/19 02/20/19 Atorvastatin Calcium 40 mg PO DAILY 02/20/19 02/20/19 Metoprolol Succinate 25 mg PO DAILY 02/20/19 02/20/19 - Allergies Allergies/Adverse Reactions: Allergies Allergy/AdvReac Type Severity Reaction Status Date / Time Sulfa (Sulfonamide Allergy Itching Verified 05/29/20 15:07 Antibiotics) - Social History Does the pt smoke?: Yes Smoking Status: Current every day smoker Does the pt drink ETOH?: No Does the pt have substance abuse?: No - Immunizations Immunizations are current?: No Immunizations: TDAP >10years/unknown - POLST Patient has POLST: No PD ED PE NORMAL - General General: Alert and oriented X 3, No acute distress, Well developed/nourished, Other (good hygeine) - HEENT HEENT: PERRL, EOMI - Cardiac Cardiac: RRR, No murmur - Respiratory Respiratory: No respiratory distress - Abdomen Abdomen: Normal bowel sounds (Somewhat depressed affect. Patient makes good eye contact. She is eager to share her story. Reports that she is depressed but denies thoughts of self-harm.) Results - Vitals Vitals: Vital Signs - 24 hr 05/29/20 05/29/20 14:55 18:42 Temperature 36.6 C Heart Rate 95 65 Respiratory 16 16 Rate Blood Pressure 174/83 H 136/72 H O2 Saturation 97 97 Oxygen O2 Source Room air PD MEDICAL DECISION MAKING - ED course Complexity details: reviewed results, considered differential, d/w patient ED course: 74-year-old female was brought into the emergency department for anxiety and mental anguish. She did call 911 because she was having thoughts of wanting to end her life. While here in the ED she denies that she has thoughts of self- harm. She reports to me that she is a [employer] and would never hurt herself but sometimes she is not sure what the purpose of living is. She did speak with our group social worker Renea and the patient no longer exhibits suicidal ideation. She denies access to guns or weapons. She does have a safety plan and verbalizes that if she has thoughts of self-harm again she will call a friend or call 911 if she did today. [employer] will check on her daily as well as a therapist who will call tomorrow to speak with the patient. Pt Expressed to me that she does not wish psychiatric placement but feels that ongoing therapy will help her manage her life stressors Departure - Departure Disposition: Home, Self Care Clinical Impression: Depression Qualifiers: Depression Type: reactive depression Qualified Code(s): F32.9 - Major depressive disorder, single episode, unspecified Condition: Stable Record reviewed to determine appropriate education?: Yes Instructions: ED Stress React Comments: Coni I want you to feel well. I am so sorry that you are dealing with the loss of your beloved pet and with the family stressors that you have. It is okay to be sad but I like that you are reaching out for help. If at any point you feel unsafe or you have thoughts of self-harm please call 911 or return to the emergency department. A therapist will be calling you to discuss your depression and [facility] will be calling to do daily safety checks with you Discharge Date/Time: 05/29/20 18:42
[2020-05-29 18:44] VITALS: BP 136/72
== END 2020-05-29 18:42 | disposition home or self-care (01) ==
LOC: EDUNIT# → ED 14:53
DX: F32.9 Major depressive disorder, single episode, unspecified (principal); F41.9 Anxiety disorder, unspecified; I10 Essential (primary) hypertension; E11.9 Type 2 diabetes mellitus without complications; Z79.84 Long term (current) use of oral hypoglycemic drugs; J44.9 Chronic obstructive pulmonary disease, unspecified; F17.200 Nicotine dependence, unspecified, uncomplicated
CPT/HCPCS: 99283

== ENCOUNTER 2020-06-11 08:00 | Outpatient (CLI) | payer MEDICARE, MEDICAID | END 2020-06-11 23:59 | disposition home or self-care (01) | LOC: LAB.R 08:00 | PROVIDERS: ATTEND Family Medicine | DX: R10.9 Unspecified abdominal pain (principal) | CPT/HCPCS: 87086 ==

== ENCOUNTER 2020-06-12 09:10 | Outpatient (CLI) | payer MEDICARE, MEDICAID ==
--- NOTE | 2020-06-12 09:53 | CT Report ---
PROCEDURE: Abdomen/Pelvis WO INDICATIONS: LT FLANK PAIN TECHNIQUE: Noncontrast 5 mm thick sections acquired from the diaphragms to the symphysis. 5 mm coronal and sagi ttal reformats were then performed. For radiation dose reduction, the following was used: automated exposure control, adjustment of mA and/or kV according to patient size. COMPARISON: None. FINDINGS: Image quality: Excellent. ABDOMEN: Lung bases: Lung bases are clear. Heart size is normal. Solid organs: Liver and spleen are normal in size. Gallbladder surgically absent Pancreas is siomara l in contours. No adrenal nodules. Multiple large left renal calculi measuring up to 1 cm. Mild left hydronephrosis. There is mild dilat ation of the left ureter. A small 2-3 mm calcification is seen in the region of the distal left urete r just above the lateral image 66/3 however no definite surrounding ureteral dilatation and this coul d be phlebolith. Additional phleboliths are present in this area. No right-sided urolithiasis Peritoneum and bowel: Unenhanced bowel loops demonstrate normal wall thickness and caliber. No free fluid or air. Colonic diverticulosis incidentally noted without evidence of acute inflammation. Nodes and vessels: No retroperitoneal or mesenteric adenopathy by size criteria. Aorta and inferior vena cava are normal in caliber. Miscellaneous: No ventral hernias. PELVIS: Genitourinary: Bladder is decompressed and otherwise unremarkable. Miscellaneous: No inguinal hernias or adenopathy. Diffuse spondylosis and facet arthropathy. IMPRESSION: Mild left hydronephrosis and hydroureter. No definite left ureteral calculus seen however a 2-3 mm ca lcification within deep left pelvis is noted possibly intraluminal, versus phlebolith as detailed abo ve. This can be further assessed with CT IVP as clinically warranted. Additional left nephrolithiasis as above. Reviewed by: Jr Magallon MD on 06/12/2020 9:51 AM PDT Approved by: Jr Magallon MD on 06/12/2020 9:51 AM PDT Station ID: [id number]
== END 2020-06-12 09:11 | disposition home or self-care (01) ==
LOC: DI 09:10
PROVIDERS: ATTEND Family Medicine
DX: N13.4 Hydroureter (principal); N13.30 Unspecified hydronephrosis; N20.0 Calculus of kidney; R91.8 Other nonspecific abnormal finding of lung field
CPT/HCPCS: 74176

== ENCOUNTER 2020-06-19 07:00 | Outpatient (CLI) | payer MEDICARE, MEDICAID | END 2020-06-19 23:59 | disposition home or self-care (01) | LOC: LAB.R 07:00 | PROVIDERS: ATTEND Family Medicine | DX: R10.9 Unspecified abdominal pain (principal) | CPT/HCPCS: 87086 ==

== ENCOUNTER 2020-07-01 08:19 | Emergency (ER) | payer MEDICARE, MEDICAID ==
[2020-07-01] MEDS ORDERED: SODIUM CHLORIDE 0.9% 1,000 ML IV STA (09:10)
[2020-07-01] MEDS ORDERED: ONDANSETRON 4 MG/2 ML VIAL IVP STA (09:10)
[2020-07-01 10:07] LABS: BASOPHILS % (AUTO) 0.6 %; EOSINOPHILS # (AUTO) 0.1 10^3/uL (0.0-0.7); EOSINOPHILS % (AUTO) 1.3 %; HGB - HEMOGLOBIN 15.4 g/dL (12.0-16.0); LYMPHOCYTES # (AUTO) 2.4 10^3/uL (1.5-3.5); MEAN CORPUSCULAR HEMOGLOBIN 33.8 pg (27.0-31.0); MEAN CORPUSCULAR HGB CONC 34.1 g/dL (32.0-36.0); MEAN CORPUSCULAR VOLUME 99.3 fL (81.0-99.0); MEAN PLATELET VOLUME 8.7 fL (7.9-10.8); MONOCYTES # (AUTO) 0.6 10^3/uL (0.0-1.0); MONOCYTES % (AUTO) 8.7 %; NEUTROPHILS # (AUTO) 3.9 10^3/uL (1.5-6.6); NEUTROPHILS % (AUTO) 55.3 %; PLT - PLATELET COUNT 290 10^3/uL (130-450); RED BLOOD COUNT 4.55 10^6/uL (4.20-5.40); RED CELL DISTRIBUTION WIDTH 12.2 % (12.0-15.0)
[2020-07-01 10:20] LABS: ALBUMIN 4.2 g/dL (3.2-5.5); ALBUMIN/GLOBULIN RATIO 1.7 (1.0-2.2); BILIRUBIN,TOTAL 0.9 mg/dL (0.2-1.0); CALCIUM 9.7 mg/dL (8.5-10.3); CREATININE 0.6 mg/dL (0.4-1.0); TOTAL PROTEIN 6.7 g/dL (6.7-8.2)
[2020-07-01] MEDS ORDERED: HYDROmorphone 1 MG/ML CARPUJECT IVP STA (10:50)
[2020-07-01] MEDS ORDERED: IOVERSOL 320 100 ML VIAL IVP ONE ×2 (11:05→12:58)
--- NOTE | 2020-07-01 12:19 | CT Report ---
PROCEDURE: Abdomen/Pelvis W INDICATIONS: LLQ abd pain CONTRAST: IV CONTRAST: Optiray 320 ml: 100 PO CONTRAST: *NO PO CONTRAST TECHNIQUE: After the administration of IV contrast, 5 mm thick sections acquired from the diaphragms to the symp hysis. 5 mm thick coronal and sagittal reformats were acquired. For radiation dose reduction, the f ollowing was used: automated exposure control, adjustment of mA and/or kV according to patient size. COMPARISON: 06/12/2020. FINDINGS: Image quality: Excellent. ABDOMEN: Lung bases: Mild right basilar dependent atelectasis is seen. Previously described 2 mm nodule in lat eral left lung base is unchanged series 4 image 10. Previously described 4 mm nodule in anterior righ t middle lobe has a more linear appearance on the current study series 4 image 2. Heart size is siomara l. Solid organs: Liver and spleen are normal in size. Mild hepatic steatosis is seen. Gallbladder is rodríguez rgically absent Biliary system is non dilated. Pancreas enhances normally. Thickened bilateral adr enal gland is again seen. No discrete adrenal nodules. Kidneys are normal in size. Multiple enlarged left renal calculi measures up to 1.4 cm in size is aga in seen. Mild left perinephric fat stranding and very mild residual left-sided hydronephrosis is seen decreased since previous study. There is also prominence of left ureter. Previously described 2 to 3 mm calcification in the region of distal left ureter is again seen series 3 image 66, distal uretera l stone cannot be excluded. Numerous phleboliths also noted in this area. No right-sided renal stone or hydronephrosis. Peritoneum and bowel: There is fecal stasis in the colon. No evidence of bowel obstruction. Questiona ble wall thickening involving ascending colon and transverse colon and descending colon is seen with mild pericolonic fat stranding and narrowing of the lumen concerning for low-grade colitis. No free f luid of free air. Small hiatal hernia is seen. Nodes and vessels: No retroperitoneal or mesenteric adenopathy by size criteria. Aorta and inferior vena cava are normal in size. Miscellaneous: No ventral hernias. PELVIS: Genitourinary: Bladder wall thickness is normal. Miscellaneous: Bilateral inguinal hernia is seen containing fat only. No inguinal lymphadenopathy. Bones: No suspicious bony lesions. Grade 1 anterolisthesis of L4 on L5 is again noted. Degenerative disc disease throughout lumbar spine is seen. No acute compression fracture is noted. IMPRESSION: 1. Interval decrease in extent of left-sided hydronephrosis and perinephric fat stranding. No definit e obstructing renal stone or ureteral stone is seen on the current study. Previously described possib le distal left ureteral stone is unchanged in size and position and may represent a phlebolith. No ri ght-sided hydronephrosis. Multiple large left renal calculi. 2. Mild colonic wall thickening involving ascending colon, transverse colon and ascending colon ric rning for low-grade colitis. No bowel obstruction. No free fluid of free air. 3. Moderate degenerative disc disease throughout lumbar spine with grade 1 anterolisthesis of L4 on L 5 unchanged from prior study. 4. Stable tiny nodular density seen in bilateral lung bases as above, unchanged from prior study and likely represent benign process. Dedicated CT chest follow-up in 6-12 months can be done for evaluati on of stability. Reviewed by: Wm Fisher MD on 07/01/2020 11:17 AM [facility] Approved by: Wm Fisher MD on 07/01/2020 11:17 AM [facility] Station ID: [id number]
[2020-07-01 12:22] LABS: BILIRUBIN,URINE NEGATIVE (NEGATIVE); GLUCOSE, URINE (UA) NEGATIVE (NEGATIVE); KETONES,URINE (UA) NEGATIVE (NEGATIVE); LEUKOCYTE ESTERASE, URINE SMALL (NEGATIVE); NITRITE,URINE NEGATIVE (NEGATIVE); OCCULT BLOOD,URINE MODERATE (NEGATIVE); PH,URINE 6.5 PH (5.0-7.5); PROTEIN,URINE NEGATIVE (NEGATIVE); UROBILINOGEN,URINE 0.2 (NORMAL) E.U./dL (NORMAL)
[2020-07-01 12:27] LABS: CLARITY,URINE HAZY (CLEAR)
[2020-07-01 12:43] VITALS: BP 147/77
[2020-07-01 12:49] LABS: BACTERIA,URINE Few /HPF (None Seen); SQUAMOUS EPITHELIAL CELL,UR FEW Squamous (<= Few)
[2020-07-01] MEDS ORDERED: CIPROFLOXACIN 250 MG TABLET PO STA (13:10)
[2020-07-01] MEDS ORDERED: metroNIDAZOLE 250 MG TABLET PO STA (13:10)
--- NOTE | 2020-07-01 13:11 | ED Physician Documentation ---
History of Present Illness - Stated complaint Stated Complaint: NAUSEA/ABD PX - Chief complaint Chief Complaint: Abd Pain - History obtained from History obtained from: Patient - Additonal information Additional information: Patient comes emergency department complaining of ongoing lower abdominal and left flank pain after being treated for pyelonephritis several weeks ago. There was also question of whether the patient may have a kidney stone, but patient states she has never noticed a stone passing since. She states that her doctor told her she had no stones, but that a nurse looked at her last CT report from about a month ago and said that she did have a stone. She denies fevers or chills. No dysuria. She states she just "doesn't feel right". She has been nauseated constantly, without vomiting, and has been tired. She states she has had intermittent diarrhea, but feels as though her bowels aren't emptying completely. Review of Systems Ten Systems: 10 systems reviewed and negative Constitutional: reports: Reviewed and negative Eyes: reports: Reviewed and negative Ears: reports: Reviewed and negative Nose: reports: Reviewed and negative Throat: reports: Reviewed and negative Cardiac: reports: Reviewed and negative Respiratory: reports: Reviewed and negative GI: reports: Abdominal Pain, Nausea. denies: Vomiting : reports: Reviewed and negative Skin: reports: Reviewed and negative Musculoskeletal: reports: Reviewed and negative Neurologic: reports: Reviewed and negative Psychiatric: reports: Reviewed and negative Endocrine: reports: Reviewed and negative Immunocompromised: reports: Reviewed and negative PD PAST MEDICAL HISTORY - Past Medical History Cardiovascular: Hypertension, High cholesterol Respiratory: COPD Endocrine/Autoimmune: Type 2 diabetes GI: None : Kidney stones Psych: Depression, Anxiety Musculoskeletal: Osteoarthritis, Chronic back pain Derm: None - Past Surgical History Past Surgical History: No General: Cholecystectomy, Appendectomy Ortho: Hip replacement /[employer]: Tubal ligation - Present Medications Home Medications: Ambulatory Orders Medication Instructions Recorded Confirmed LORazepam [Ativan] 0.5 mg PO Q6H PRN #7 tablet 03/15/16 02/20/19 hydroCHLOROthiazide 25 mg PO DAILY 03/15/16 02/20/19 [Hydrochlorothiazide] lisinopriL [Lisinopril] 20 mg PO DAILY 03/15/16 02/20/19 metFORMIN [Glucophage] 500 mg PO BID 03/15/16 02/20/19 Albuterol Sulf [Ventolin Hfa 1 - 2 puffs INH Q4HR PRN #1 inhaler 08/29/17 02/20/19 Inhaler] Citalopram [CeleXA] 40 mg PO ONCE 10/12/17 02/20/19 Hydrocodone/Acetaminophen 1 - 2 each PO Q6H PRN #14 tablet 01/04/19 02/21/19 [Hydrocodon-Acetaminophen 5-325] Naproxen 375 mg PO BID #20 tablet 02/06/19 02/20/19 oxyCODONE [Roxicodone] 5 mg PO Q4-6H PRN #20 tablet 02/06/19 02/20/19 Atorvastatin Calcium 40 mg PO DAILY 02/20/19 02/20/19 Metoprolol Succinate 25 mg PO DAILY 02/20/19 02/20/19 Ciprofloxacin [Cipro] 500 mg PO Q8H 7 Days #42 tablet 07/01/20 metroNIDAZOLE [Flagyl] 500 mg PO BID 7 Days #14 tablet 07/01/20 - Allergies Allergies/Adverse Reactions: Allergies Allergy/AdvReac Type Severity Reaction Status Date / Time Sulfa (Sulfonamide Allergy Itching Verified 07/01/20 08:47 Antibiotics) - Social History Does the pt smoke?: Yes Smoking Status: Current every day smoker Does the pt drink ETOH?: No Does the pt have substance abuse?: No - Immunizations Immunizations are current?: No Immunizations: TDAP >10years/unknown - POLST Patient has POLST: No PD ED PE NORMAL - Vitals Vital signs reviewed: Yes - General General: Alert and oriented X 3, No acute distress - HEENT HEENT: Atraumatic, PERRL, EOMI, Moist mucous membranes - Neck Neck: Supple, no meningeal sign - Cardiac Cardiac: RRR, No murmur, Strong equal pulses - Respiratory Respiratory: No respiratory distress, Clear bilaterally - Abdomen Abdomen: Soft, Non tender, Non distended - Back Back: Other (Mild L CVA TTP) - Derm Derm: Normal color, Warm and dry, No rash - Extremities Extremities: No deformity, No edema, No calf tenderness / cord - Neuro Neuro: Alert and oriented X 3, panel beater 2-12 intact, Normal speech, Other (grossly intact) - Psych Psych: Normal mood, Normal affect Results - Vitals Vitals: Vital Signs - 24 hr 07/01/20 07/01/20 07/01/20 08:32 10:09 12:42 Temperature 36.9 C Heart Rate 96 68 75 Respiratory 20 12 18 Rate Blood Pressure 151/100 H 119/65 147/77 H O2 Saturation 99 99 97 Oxygen O2 Source Room air - Labs Labs: Laboratory Tests 07/01/20 07/01/20 07/01/20 09:50 09:50 11:18 WBC 7.0 RBC 4.55 Hgb 15.4 Hct 45.2 MCV 99.3 H MCH 33.8 H MCHC 34.1 RDW 12.2 Plt Count 290 MPV 8.7 Neut # (Auto) 3.9 Lymph # (Auto) 2.4 [place] # (Auto) 0.6 Eos # (Auto) 0.1 Baso # (Auto) 0.0 Absolute Nucleated RBC 0.00 Nucleated RBC % 0.0 Sodium 138 Potassium 3.6 Chloride 97 L Carbon Dioxide 28 Anion Gap 13.0 BUN 18 Creatinine 0.6 Estimated GFR (MDRD) 98 Glucose 111 H Calcium 9.7 Total Bilirubin 0.9 AST 19 ALT 15 Alkaline Phosphatase 70 Total Protein 6.7 Albumin 4.2 Globulin 2.5 Albumin/Globulin Ratio 1.7 Lipase 31 Urine Color YELLOW Urine Clarity HAZY Urine pH 6.5 Ur Specific [place] 1.015 Urine Protein NEGATIVE Urine Glucose (UA) NEGATIVE Urine Ketones NEGATIVE Urine Occult Blood MODERATE H Urine Nitrite NEGATIVE Urine Bilirubin NEGATIVE Urine Urobilinogen 0.2 (NORMAL) Ur Leukocyte Esterase SMALL H Urine RBC 11-25 H Urine WBC 6-10 H Ur Squamous Epith Cells FEW Squamous Urine Bacteria Few Ur Microscopic Review INDICATED Urine Culture Comments INDICATED - Rads (name of study) CT abd/pelvis Radiology: Final report received, EMP read indepedently, See rad report (colitis; decreased L perinephric stranding and decreased L hydroureter.) PD MEDICAL DECISION MAKING - ED course Complexity details: reviewed old records, reviewed results, re-evaluated patient, considered differential, d/w patient ED course: The pt was treated symptomatically with IV fluids and Zofran. Labs were performed, which were unremarkable. UA was positive for LE and WBC on a noncontaminated sample. CT showed colitis with decreasing perinephric stranding and hydronephrosis on the L, compared to previous CT in which both of those findings were more prominent. No ureteral calculus. I d/w pt that her urine is positive again. I feel she should follow up with urology, given all of the trouble she's had over the past couple of months with her urinary system. I am not sure what is causing the colitis, as the pt does not have the typical degree of diarrhea expected with C. diff. However, I will treat her with Cipro and Flagyl to cover this, as well. We have discussed the importance of probiotics and the need to follow up and provide a stool sample if her diarrhea continues for more than the next week. We have discussed the usual indications for return. Departure - Departure Disposition: 01 Home, Self Care Clinical Impression: Colitis Condition: Stable Instructions: ED Gastroenteritis Bacterial, ED UTI Cystitis Female Follow-Up: Skyler Irvin MD [Physician No Access] - Prescriptions: Ciprofloxacin [Cipro] 500 mg PO Q8H 7 Days #42 tablet metroNIDAZOLE [Flagyl] 500 mg PO BID 7 Days #14 tablet Comments: In many ways, your CT scan looks better today than it did before. The blockage in your left ureter, or tube that drains your kidney, seems to have resolved, and the enlargement of the tube and inflammation around the kidney have both decreased significantly. You do have many large stones in your left kidney, though these are not migrating through the tube at this time. Your urinalysis is positive for infection again, and there is also evidence of inflammation in your large intestine. This could be as a result of the antibiotics you are on recently, though generally, this would be associated with severe diarrhea if it was the case. Given this finding and the urinary tract infection, we will treat with antibiotics once more, but it is very important that you follow-up with your primary care physician and probably, urology. You have been given contact information for the urology clinic. Please drink plenty of fluids and get plenty of rest. Call your doctor's office tomorrow to set up a follow-up appointment. Discharge Date/Time: 07/01/20 13:54
== END 2020-07-01 13:54 | disposition home or self-care (01) ==
LOC: ED 08:19
DX: K52.9 Noninfective gastroenteritis and colitis, unspecified (principal); I10 Essential (primary) hypertension; E11.9 Type 2 diabetes mellitus without complications; Z79.84 Long term (current) use of oral hypoglycemic drugs; F17.200 Nicotine dependence, unspecified, uncomplicated
CPT/HCPCS: 36415; 74177; 80053; 81001; 83690; 85025; 87086; 96374; 99284; 99285; A9270; Q9967; 81003

== ENCOUNTER 2020-10-03 08:00 | Outpatient (CLI) | payer MEDICARE, MEDICAID ==
[2020-10-03 12:18] LABS: CALCIUM 9.4 mg/dL (8.5-10.3); CREATININE 0.7 mg/dL (0.4-1.0)
== END 2020-10-03 23:59 | disposition home or self-care (01) ==
LOC: LAB.WCP 08:00
PROVIDERS: ATTEND Family Medicine
DX: N20.0 Calculus of kidney (principal); J44.9 Chronic obstructive pulmonary disease, unspecified; E78.2 Mixed hyperlipidemia; E11.9 Type 2 diabetes mellitus without complications; I10 Essential (primary) hypertension
CPT/HCPCS: 36415; 80048; 82043; 82330; 82570; 83036; 83970

== ENCOUNTER 2020-10-15 09:45 | Outpatient (CLI) | payer MEDICARE, MEDICAID ==
[2020-10-15 10:07] LABS: BASOPHILS % (AUTO) 0.4 %; EOSINOPHILS # (AUTO) 0.2 10^3/uL (0.0-0.7); EOSINOPHILS % (AUTO) 1.7 %; HGB - HEMOGLOBIN 15.5 g/dL (12.0-16.0); LYMPHOCYTES # (AUTO) 3.2 10^3/uL (1.5-3.5); LYMPHOCYTES % (AUTO) 33.5 %; MEAN CORPUSCULAR HEMOGLOBIN 32.9 pg (27.0-31.0); MEAN CORPUSCULAR VOLUME 99.8 fL (81.0-99.0); MEAN PLATELET VOLUME 8.6 fL (7.9-10.8); MONOCYTES # (AUTO) 0.8 10^3/uL (0.0-1.0); MONOCYTES % (AUTO) 8.2 %; NEUTROPHILS # (AUTO) 5.4 10^3/uL (1.5-6.6); NEUTROPHILS % (AUTO) 55.9 %; PLT - PLATELET COUNT 318 10^3/uL (130-450); RED BLOOD COUNT 4.71 10^6/uL (4.20-5.40); RED CELL DISTRIBUTION WIDTH 12.2 % (12.0-15.0); WHITE BLOOD COUNT 9.7 x10^3/uL (4.8-10.8)
[2020-10-15 10:14] LABS: INR 1.1 (0.8-1.2); PT - PROTHROMBIN TIME 11.9 secs (9.9-12.6)
[2020-10-15 10:21] LABS: PARTIAL THROMBOPLASTIN TIME 26.7 secs (24.9-33.3)
[2020-10-15 10:36] LABS: CALCIUM 9.5 mg/dL (8.5-10.3); CREATININE 0.8 mg/dL (0.4-1.0)
== END 2020-10-15 09:46 | disposition home or self-care (01) ==
LOC: LAB 09:45
PROVIDERS: ATTEND Urology
DX: N20.0 Calculus of kidney (principal); R31.0 Gross hematuria
CPT/HCPCS: 36415; 80048; 85025; 85610; 85730

== ENCOUNTER 2020-12-16 10:26 | Outpatient (CLI) | payer MEDICARE, MEDICAID ==
--- NOTE | 2020-12-17 13:08 | Mammography Report ---
UNILATERAL LEFT DIGITAL DIAGNOSTIC MAMMOGRAM 3D/2D: 12/16/2020 CLINICAL: Patient returns for 6 month follow up on left breast for calcifications. Comparison is made to exams dated: 04/10/2020 mammogram, 06/12/2019 mammogram, 05/30/2019 mammogram, mammogram, and 01/10/2017 mammogram - [facility]. There are scattered fibr oglandular elements in left breast. There are stable benign grouped punctate calcifications in the left breast at 1 o'clock middle depth; stable since 03/2018. No other significant masses or calcifications are seen in the breast. IMPRESSION: BENIGN There is no mammographic evidence of malignancy. The calcifications are stable. Return to annual m ammogram screening schedule is recommended which is due in 6 months. This exam was interpreted at Station ID: [id number]. NOTE: For mammograms, a report in lay terms will be sent to the patient. Approximately 15% of breast malignancies will not be visualized mammographically. In the management of a palpable breast mass, a negative mammogram must not discourage biopsy of a clinically suspicious lesion. Electronically Signed By: Leroy Hester acr/:12/16/2020 11:37:46 ACR BI-RADS Category 2: Benign Finding(s) 3342F PARENCHYMAL PATTERN: (A) - The breast(s) demonstrate(s) scattered fibroglandular densities. BI-RADS CATEGORY: (2) - 2 RECOMMENDATION: (ANNUAL) - Recommend routine annual screening mammography. [id number] return to screening LATERALITY: (B)
== END 2020-12-16 10:27 | disposition home or self-care (01) ==
LOC: DI 10:26
PROVIDERS: ATTEND Family Medicine
DX: R92.8 Other abnormal and inconclusive findings on diagnostic imaging of breast (principal)

== ENCOUNTER 2021-02-02 13:10 | Outpatient (CLI) | payer MEDICARE, MEDICAID | END 2021-02-02 23:59 | disposition home or self-care (01) | LOC: COV 13:10 | PROVIDERS: ATTEND Ophthalmology | DX: Z01.812 Encounter for preprocedural laboratory examination (principal); H25.11 Age-related nuclear cataract, right eye; E11.9 Type 2 diabetes mellitus without complications; Z20.822 Contact with and (suspected) exposure to COVID-19 ==

== ENCOUNTER 2021-02-05 09:31 | Day surgery (SDC) | payer MEDICARE, MEDICAID ==
[~2021-02-05 09:31] MED LIST: CYCLOPENTOLATE 1% OPHTH DROPS 2 ML ONE; KETOROLAC 0.45% OPHTH DROPS ONE; PHENYLEPHRINE 2.5% OPHTH 2 ML DROPS ONE; PROPARACAINE 0.5% OPHTH DROPS 15 ML ONE
--- NOTE | 2021-02-05 10:25 | ANESTHESIA ---
Pre-Anesthesia VS, & Labs - Diagnosis right eye cataract - Procedure right CATIOL Vital Signs: Temp Pulse Resp BP Pulse Ox 36.7 C 69 17 169/76 H 96 02/05/21 10:09 02/05/21 10:09 02/05/21 10:09 02/05/21 10:09 02/05/21 10:09 Height: 5 ft 4 in Weight (kg): 82.4 kg Body Mass Index: 31.1 BMI Classification: Obese - NPO >8 hours - Is Patient ?: No - Lab Results Lab results reviewed: No Home Medications and Allergies Home Medications: Ambulatory Orders Gabapentin [Neurontin] 200 mg PO BID 02/04/21 Naproxen 375 mg PO BID 02/04/21 hydroCHLOROthiazide [Hydrochlorothiazide] 25 mg PO DAILY 03/15/16 lisinopriL [Lisinopril] 20 mg PO DAILY 03/15/16 metFORMIN [Glucophage] 500 mg PO DAILY 03/15/16 Citalopram [CeleXA] 40 mg PO ONCE 10/12/17 Atorvastatin Calcium 40 mg PO DAILY 02/20/19 Metoprolol Succinate 25 mg PO BID 02/20/19 Gabapentin [Neurontin] 200 mg PO BID 02/04/21 Naproxen 375 mg PO BID 02/04/21 Allergies/Adverse Reactions: Allergies Allergy/AdvReac Type Severity Reaction Status Date / Time Sulfa (Sulfonamide Allergy Itching Verified 07/01/20 08:47 Antibiotics) Anes History & Medical History - Anesthetic History Anesthesia Complications: reports: No previous complications Family history of Anesthesia Complications: Denies Family history of Malignant Hyperthermia: Denies - Medical History Cardiovascular: reports: Hypertension, High cholesterol Pulmonary: reports: COPD Gastrointestinal: reports: None Urinary: reports: Kidney stones Musculoskeletal: reports: Osteoarthritis, Chronic back pain Endocrine/Autoimmune: reports: Type 2 diabetes Skin: reports: None Smoking Status: Former smoker - Surgical History General: reports: Cholecystectomy, Appendectomy Gynecologic: reports: Tubal ligation Orthopedic: reports: Hip replacement Exam General: Alert, Oriented x3, Cooperative, No acute distress Dental: WNL Mouth Openin Fingerbreadth Neck Mobility: Normal Mallampati classification: II Respiratory: Lungs clear, Normal breath sounds, No respiratory distress, No accessory muscle use Cardiovascular: Regular rate, Normal S1, Normal S2, No murmurs Plan Anesthesia Type: MAC Consent for Procedure(s) Verified and Reviewed: Yes Code Status: Attempt Resuscitation ASA classification: 2-Mild systemic disease Is this case an emergency?: No
[2021-02-05] MEDS ORDERED: LACTATED RINGERS 500 ML IV ONE ×2 (10:37→11:47)
[2021-02-05] MEDS ORDERED: MIDAZOLAM 2 MG/2 ML VIAL ONE (11:17)
[2021-02-05] MEDS ORDERED: TIMOLOL 0.5% OPHTH DROPS OPTH ONE (11:34)
[2021-02-05] MEDS ORDERED: EPINEPHrine 1 MG/ML AMP IR ONE (11:34)
[2021-02-05] MEDS ORDERED: BRIMONIDINE 0.2% OPHTH DROPS 5 ML OPTH ONE (11:34)
[2021-02-05] MEDS ORDERED: CHONDR SULF/HYALURONATE SYRINGE IO ONE (11:34)
[2021-02-05] MEDS ORDERED: BSS/LIDOCAINE/EPINEPHRINE 1 ML SYRINGE IO ONE (11:34)
[2021-02-05] MEDS ORDERED: TRIAMCIN/MOXIFLOX OPHTHALMIC 0.6 ML VIAL IO ONE ×2 (11:34→13:07)
[2021-02-05] MEDS ORDERED: PROPARACAINE 0.5% OPHTH DROPS 15 ML EACHEYE ONE (11:34)
[2021-02-05] MEDS ORDERED: VANCOMYCIN OPHTHALMI 8MG/0.8ML 8 MG/0.8 ML SYRINGE IO ONE ×2 (11:35→13:07)
--- NOTE | 2021-02-05 11:52 | ANESTHESIA POST OP EVALUATION ---
Anesthesia Post Eval - Post Anesthesia Eval Vitals: Last Vital Signs Temp 36.4 C L 02/05/21 11:45 Pulse 72 02/05/21 11:45 Resp 16 02/05/21 11:45 BP 140/53 H 02/05/21 11:45 Pulse Ox 99 02/05/21 11:45 CV Function Including HR & BP: Stable Pain Control: Satisfactory Nausea & Vomiting: Negative Mental Status: Baseline Respiratory Status: Airway Patent Hydration Status: Satisfactory Anesthesia Complications: None
[2021-02-05 12:00] VITALS: BP 138/51
--- NOTE | 2021-02-05 12:26 | OPERATIVE REPORT ---
Operative Report - Other Other Information/Narrative: Date of Surgery: 02/05/21 Preop Dx: Visually significant cataract right eye. This was the first cataract surgery. Postop Dx: Same Procedure: Phacoemulsification with posterior chamber intraocular lens implant right eye Surgeon: Dr. Karl Buckley Anesthesia: Monitored anesthesia care Complications: None Operative Indications: This is a 75-year-old F with progressive vision loss in the right eye due to 4+ nuclear sclerotic and vacuolar cataract. Best corrected visual acuity was 20/70 with glare to light perception vision in the right eye. Indications for surgery were: - Overall decrease in vision - Difficulty reading - Difficulty seeing words, closed captions, or game scores on TV - Difficulty seeing street signs - Difficulty driving at night because of headlights from other vehicles - Difficulty with glare or bright lights in any situation The patient was consented at length concerning the risks and benefits of cataract surgery after which the patient expressed a desire to proceed with surgery. Operative Procedure: The patient was taken into OR#3 and placed under monitored anesthesia care. A surgical time-out was conducted confirming correct patient, correct procedure, and correct surgical site. The patient was given topical anesthesia and then prepped and draped in the usual sterile fashion. The eye was entered at the 6 and 3 oclock positions. Intracameral Shugarcaine was injected into the anterior chamber followed by a dispersive viscoelastic. A continuous-tear curvilinear capsulorhexis was performed. The nucleus was hydrodissected and phacoemulsified. The cortex was evacuated using automated infusion and aspiration. A cohesive viscoelastic was injected into the capsular bag and a 23.0 diopter intraocular lens was inserted into the bag. Infusion and aspiration were used to evacuate the viscoelastic materials from the eye. The wounds were hydrated and the eye inflated to physiologic pressure using balanced salt solution. Approximately 0.25ml of a mixture of triamcinolone and moxifloxacin was injected trans-sclerally into the vitreous in the inf erotemporal quadrant using a 30 gauge cannula. An additional 0.55ml of a mixture of triamcinolone, moxifloxacin, and vancomycin was injected subconjunctivally in the superior quadrant for infection and inflammation prophylaxis. Wound integrity was checked with Weck-Tomasa sponges. The patient was taken from the operating room in good condition and given post-op instructions.
[2021-02-05] MEDS ORDERED: EPINEPHrine 1 MG/ML AMP ONE (13:07)
[2021-02-05] MEDS ORDERED: BRIMONIDINE 0.2% OPHTH DROPS 5 ML ONE (13:07)
[2021-02-05] MEDS ORDERED: TIMOLOL 0.5% OPHTH DROPS ONE (13:07)
[2021-02-05] MEDS ORDERED: BSS/LIDOCAINE/EPINEPHRINE 1 ML SYRINGE ONE (13:07)
== END 2021-02-05 09:32 | disposition home or self-care (01) ==
LOC: SDS 09:31
PROVIDERS: ATTEND Ophthalmology
DX: E11.36 Type 2 diabetes mellitus with diabetic cataract (principal); H25.11 Age-related nuclear cataract, right eye; J44.9 Chronic obstructive pulmonary disease, unspecified; E66.9 Obesity, unspecified; Z68.31 Body mass index [BMI] 31.0-31.9, adult; Z79.84 Long term (current) use of oral hypoglycemic drugs
CPT/HCPCS: 66984; A9270; J3490; J7120

== ENCOUNTER 2021-05-28 09:28 | Outpatient (CLI) | payer MEDICARE, MEDICAID ==
[2021-05-28 12:24] LABS: BASOPHILS % (AUTO) 0.4 %; EOSINOPHILS # (AUTO) 0.2 10^3/uL (0.0-0.7); EOSINOPHILS % (AUTO) 1.7 %; HCT - HEMATOCRIT 44.3 % (37.0-47.0); HGB - HEMOGLOBIN 14.1 g/dL (12.0-16.0); LYMPHOCYTES # (AUTO) 3.2 10^3/uL (1.5-3.5); MEAN CORPUSCULAR HEMOGLOBIN 31.8 pg (27.0-31.0); MEAN CORPUSCULAR HGB CONC 31.8 g/dL (32.0-36.0); MEAN PLATELET VOLUME 9.3 fL (7.9-10.8); MONOCYTES # (AUTO) 0.7 10^3/uL (0.0-1.0); MONOCYTES % (AUTO) 7.2 %; NEUTROPHILS # (AUTO) 5.1 10^3/uL (1.5-6.6); NEUTROPHILS % (AUTO) 55.4 %; PLT - PLATELET COUNT 295 10^3/uL (130-450); RED BLOOD COUNT 4.43 10^6/uL (4.20-5.40); RED CELL DISTRIBUTION WIDTH 11.9 % (12.0-15.0); WHITE BLOOD COUNT 9.3 x10^3/uL (4.8-10.8)
[2021-05-28 12:49] LABS: ALBUMIN 4.1 g/dL (3.2-5.5); ALBUMIN/GLOBULIN RATIO 1.6 (1.0-2.2); ALKALINE PHOSPHATASE 85 IU/L (42-121); ALT ALANINE AMINOTRANSFERASE 17 IU/L (10-60); AST ASPARTATE AMINOTRANSFERASE 22 IU/L (10-42); BILIRUBIN,TOTAL 1.1 mg/dL (0.2-1.0); BUN - BLOOD UREA NITROGEN 18 mg/dL (6-20); CALCIUM 9.5 mg/dL (8.5-10.3); CARBON DIOXIDE - CO2 29 mmol/L (21-32); CHLORIDE 99 mmol/L (101-111); CHOL/HDL RATIO 2.1 (<4.4); CHOLESTEROL 144 mg/dL; CREATININE 0.6 mg/dL (0.4-1.0); GFR - MDRD 97 (>89); GLUCOSE 105 mg/dL (70-100); HDL CHOLESTEROL 70 mg/dL; LDL CHOLESTEROL,CALCULATED 55 mg/dL; LDL/HDL RATIO 0.8 (<4.4); POTASSIUM 4.1 mmol/L (3.5-5.0); SODIUM 139 mmol/L (135-145); TOTAL PROTEIN 6.6 g/dL (6.7-8.2); TRIGLYCERIDES 96 mg/dL; VLDL CHOLESTEROL 19 mg/dL
[2021-05-28 12:52] LABS: THYROID STIMULATING HORMONE 1.39 uIU/mL (0.34-5.60)
[2021-05-28 12:53] LABS: ESTIMATED AVERAGE GLUCOSE 120 mg/dL (70-100); HEMOGLOBIN A1c% 5.8 % (4.27-6.07)
[2021-05-28 18:17] LABS: CREATININE,URINE 58.9 mg/dL; MICROALBUM/CREATININE RATIO,UR 3.4 ug/mg (<30.0); MICROALBUMIN,URINE 0.2 mg/dL (0-300.0)
== END 2021-05-28 23:59 | disposition home or self-care (01) ==
LOC: LAB.WCP 09:28
PROVIDERS: ATTEND Family Medicine
DX: M19.90 Unspecified osteoarthritis, unspecified site (principal); E11.9 Type 2 diabetes mellitus without complications; J44.9 Chronic obstructive pulmonary disease, unspecified; E78.2 Mixed hyperlipidemia; F32.A Depression, unspecified; I10 Essential (primary) hypertension
CPT/HCPCS: 36415; 80053; 80061; 82043; 82570; 83036; 83721; 84443; 85025

== ENCOUNTER 2021-11-13 11:21 | Outpatient (CLI) | payer MEDICARE, MEDICAID | END 2021-11-13 11:22 | disposition critical access hospital (66) | LOC: EMS 11:21 | DX: R11.0 Nausea (principal); R63.0 Anorexia; M54.50 Low back pain, unspecified; M54.6 Pain in thoracic spine | CPT/HCPCS: A0425; A0427 ==

== ENCOUNTER 2021-11-13 11:39 | Emergency (ER) | payer MEDICARE, MEDICAID ==
--- NOTE | 2021-11-13 12:18 | ED Physician Documentation ---
History of Present Illness - Stated complaint Stated Complaint: NAUSEA - Chief complaint Chief Complaint: General - History obtained from History obtained from: Patient - Additonal information Additional information: 76-year-old woman with multiple complaints presents by ambulance. Her main complaint in the most acute issues that for the last 3 to 4 days she has had nausea and diarrhea. It is associated with a mild frontal headache but no abdominal pain. No sick contacts. The nausea is better after receiving Zofran in route. She also has chronic and worsening back pain. She had been on hyd rocodone in the past and felt that was more effective than the current tramadol that her primary care physician is prescribing her. She is losing functionality because of it and worries about her ability to care for herself. That said she does not want to go to assisted living and declines to speak with the adoption social worker about resources, she thinks she has all the resources she needs. Review of Systems Ten Systems: 10 systems reviewed and negative Constitutional: reports: Fatigue Cardiac: denies: Chest pain / pressure, Palpitations Respiratory: denies: Dyspnea, Cough GI: reports: Nausea, Vomiting, Diarrhea. 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: Tubal ligation - Present Medications Home Medications: Ambulatory Orders Medication Instructions Recorded Confirmed LORazepam [Ativan] 0.5 mg PO Q6H PRN #7 tablet 03/15/16 02/04/21 hydroCHLOROthiazide 25 mg PO DAILY 03/15/16 02/04/21 [Hydrochlorothiazide] lisinopriL [Lisinopril] 20 mg PO DAILY 03/15/16 02/04/21 metFORMIN [Glucophage] 500 mg PO DAILY 03/15/16 02/04/21 Citalopram [CeleXA] 40 mg PO ONCE 10/12/17 02/04/21 Atorvastatin Calcium 40 mg PO DAILY 02/20/19 02/04/21 Metoprolol Succinate 25 mg PO BID 02/20/19 02/04/21 Gabapentin [Neurontin] 200 mg PO BID 02/04/21 02/04/21 Naproxen 375 mg PO BID 02/04/21 02/04/21 HYDROcod/ACETAM 5/325 [[place] 5/325] 1 - 2 tab PO Q6H PRN #20 tablet 11/13/21 Loperamide [Imodium] 2 mg PO QID PRN #10 cap 11/13/21 Ondansetron Odt [Zofran] 4 mg TL Q6H PRN #10 tablet 11/13/21 - Allergies Allergies/Adverse Reactions: Allergies Allergy/AdvReac Type Severity Reaction Status Date / Time Sulfa (Sulfonamide Allergy Itching Verified 07/01/20 08:47 Antibiotics) - Social History Does the pt smoke?: Yes Smoking Status: Former smoker Does the pt drink ETOH?: No Does the pt have substance abuse?: No - Immunizations Immunizations are current?: No Immunizations: TDAP >10years/unknown - POLST Patient has POLST: No PD ED PE NORMAL - Vitals Vital signs reviewed: Yes - General General: Alert and oriented X 3, No acute distress, Well developed/nourished - HEENT HEENT: PERRL, EOMI - Neck Neck: Supple, no meningeal sign, No bony TTP - Cardiac Cardiac: RRR, No murmur - Respiratory Respiratory: No respiratory distress, Clear bilaterally - Abdomen Abdomen: Normal bowel sounds, Soft, Non tender - Back Back: No CVA TTP, No spinal TTP - Derm Derm: Normal color, Warm and dry - Extremities Extremities: No edema, No calf tenderness / cord - Neuro Neuro: Alert and oriented X 3, No motor deficit, No sensory deficit, Normal speech Eye Opening: Spontaneous Motor: Obeys Commands Verbal: Oriented GCS Score: 15 Results - Vitals Vitals: Vital Signs - 24 hr 11/13/21 11/13/21 11:45 11:52 Temperature 36.6 C 36.6 C Heart Rate 82 82 Respiratory 16 16 Rate Blood Pressure 187/80 H 187/80 H O2 Saturation 98 98 Oxygen O2 Source Room air - EKG (time done) 1247 Rate: Rate (enter#) (78) Rhythm: NSR (w pvc) [place]: LAD Intervals: Normal CT QRS: Normal, Low voltage Ischemia: Normal ST segments - Labs Labs: Laboratory Tests 11/13/21 11/13/21 11/13/21 12:28 12:28 12:28 WBC 8.0 RBC 4.67 Hgb 15.1 Hct 45.4 MCV 97.2 MCH 32.3 H MCHC 33.3 RDW 12.4 Plt Count 298 MPV 8.6 Neut # (Auto) 5.1 Lymph # (Auto) 2.1 [place] # (Auto) 0.7 Eos # (Auto) 0.1 Baso # (Auto) 0.0 Absolute Nucleated RBC 0.00 Nucleated RBC % 0.0 Sodium 139 Potassium 3.6 Chloride 100 L Carbon Dioxide 27 Anion Gap 12.0 BUN 13 Creatinine 0.6 Estimated GFR (MDRD) 97 Glucose 116 H Calcium 9.3 Magnesium 2.0 Total Bilirubin 0.8 AST 17 ALT 12 Alkaline Phosphatase 88 Troponin I High Sens 3.7 Total Protein 6.8 Albumin 3.9 Globulin 2.9 Albumin/Globulin Ratio 1.3 PD MEDICAL DECISION MAKING - ED course ED course: 76-year-old woman presents with a couple of issues, most distressing to her is actually her worsening of chronic back pain. Feels that tramadol is not working. Discussed with her that I was willing to write a short prescription for hydrocodone for this but needs to follow-up with her doctor for consideration of pain management versus spine consult. No "red flags" or acute issue necessitating urgent work-up from my perspective though. She also has a stomach virus. Labs were normal. She felt better after administration of Zofran IV fluids. She passed p.o. challenge. ACS was considered given her female gender and age given the prominent nausea but no ischemic findings on EKG and negative troponin. Departure - Departure Disposition: 01 Home, Self Care Clinical Impression: Diarrhea, Acute exacerbation of chronic low back pain, Nausea Condition: Good Record reviewed to determine appropriate education?: Yes Instructions: ED Gastroenteritis Viral, ED Back Care Tips Prescriptions: Loperamide [Imodium] 2 mg PO QID PRN #10 cap PRN Reason: Diarrhea HYDROcod/ACETAM 5/325 [[place] 5/325] 1 - 2 tab PO Q6H PRN #20 tablet PRN Reason: Pain Ondansetron Odt [Zofran] 4 mg TL Q6H PRN #10 tablet PRN Reason: Nausea / Vomiting Comments: Blood work and EKG were unremarkable. As far as your stomach symptoms, I think they will go away with time. I am prescribing some nausea medicine and something for the diarrhea. For the chronic back pain follow-up with your physician as scheduled next week, consideration for spine surgery versus pain management consultation. Return for new or worsening symptoms. Prescription sent electronically to [facility] in [place]. I am prescribing a short course of narcotic pain medication for you. These are potentially dangerous and addictive medications that should be used carefully. These medications may constipate you. Take an zbhg-vll-xfcdpdx stool softener (docusate) twice daily with plenty of water while taking these medications. If you go 24 hours without a bowel movement, take [id number]-[id number] miralax, per package instructions. Do not drink or drive while taking these medications. If you received narcotic or sedating medications while in the emergency department, do not drive for 24 hours. Store this medication in a safe, secure place and out of reach of children. It is a violation of federal law to give or sell this medication to another person or to use in a manner other than prescribed. The ED will not refill narcotic prescriptions, including prescriptions lost or stolen. To dispose of unwanted medications: 1. [facility] at [address] in [place] has a medication drop box. They accept prescription medications (in pill form) Tuesday through Tuesday 9:00 a.m. to 5:00 p.m. 2. The [facility] Police Department accepts prescription medications (in pill form only) for disposal year round. Call for more information. 3. Contact the [facility] for the next [facility] sponsored prescription drug collection event. , [phone], or [phone]; Note that many narcotic pain relievers also contain Tylenol/acetaminophen. Please ensure that your total dose of acetaminophen from all sources does not exceed 3 g (3000 mg) per day.
[2021-11-13] MEDS: HYDROcod/ACETAM 5/325 MG TABLET PO STA (12:21)
[2021-11-13] MEDS: SODIUM CHLORIDE 0.9% 1,000 ML IV STA (12:24)
[2021-11-13 12:33] LABS: BASOPHILS % (AUTO) 0.4 %; EOSINOPHILS # (AUTO) 0.1 10^3/uL (0.0-0.7); EOSINOPHILS % (AUTO) 1.1 %; HCT - HEMATOCRIT 45.4 % (37.0-47.0); HGB - HEMOGLOBIN 15.1 g/dL (12.0-16.0); LYMPHOCYTES # (AUTO) 2.1 10^3/uL (1.5-3.5); LYMPHOCYTES % (AUTO) 25.7 %; MEAN CORPUSCULAR HEMOGLOBIN 32.3 pg (27.0-31.0); MEAN CORPUSCULAR HGB CONC 33.3 g/dL (32.0-36.0); MEAN CORPUSCULAR VOLUME 97.2 fL (81.0-99.0); MEAN PLATELET VOLUME 8.6 fL (7.9-10.8); MONOCYTES # (AUTO) 0.7 10^3/uL (0.0-1.0); MONOCYTES % (AUTO) 8.4 %; NEUTROPHILS # (AUTO) 5.1 10^3/uL (1.5-6.6); NEUTROPHILS % (AUTO) 64.1 %; PLT - PLATELET COUNT 298 10^3/uL (130-450); RED BLOOD COUNT 4.67 10^6/uL (4.20-5.40); RED CELL DISTRIBUTION WIDTH 12.4 % (12.0-15.0)
[2021-11-13 12:50] LABS: ALBUMIN 3.9 g/dL (3.2-5.5); ALBUMIN/GLOBULIN RATIO 1.3 (1.0-2.2); BILIRUBIN,TOTAL 0.8 mg/dL (0.2-1.0); CALCIUM 9.3 mg/dL (8.5-10.3); CREATININE 0.6 mg/dL (0.4-1.0); POTASSIUM 3.6 mmol/L (3.5-5.0); TOTAL PROTEIN 6.8 g/dL (6.7-8.2)
[2021-11-13 13:56] VITALS: BP 160/80
== END 2021-11-13 14:10 | disposition home or self-care (01) ==
LOC: EDUNIT# → ED 11:39
DX: M54.50 Low back pain, unspecified (principal); G89.29 Other chronic pain; R19.7 Diarrhea, unspecified; E11.9 Type 2 diabetes mellitus without complications; Z79.84 Long term (current) use of oral hypoglycemic drugs; I10 Essential (primary) hypertension; Z87.891 Personal history of nicotine dependence
CPT/HCPCS: 36415; 80053; 83735; 84484; 85025; 93005; 99283; 99284; A9270

== ENCOUNTER 2022-02-24 11:11 | Outpatient (CLI) | payer MEDICARE, MEDICAID | END 2022-02-24 11:12 | disposition critical access hospital (66) | LOC: EMS 11:11 | DX: R19.7 Diarrhea, unspecified (principal); R11.0 Nausea; R51.9 Headache, unspecified | CPT/HCPCS: A0425; A0427 ==

== ENCOUNTER 2022-04-25 14:36 | Outpatient (CLI) | payer MEDICARE, MEDICAID | END 2022-04-25 14:37 | disposition EMS.NT | LOC: EMS 14:36 | DX: R53.1 Weakness (principal); F41.9 Anxiety disorder, unspecified; M54.9 Dorsalgia, unspecified; M25.519 Pain in unspecified shoulder; G89.29 Other chronic pain; R11.0 Nausea ==

== ENCOUNTER 2022-07-07 15:59 | Outpatient (CLI) | payer MEDICARE, MEDICAID | END 2022-07-07 16:00 | disposition critical access hospital (66) | LOC: EMS 15:59 | DX: R19.7 Diarrhea, unspecified (principal); R10.9 Unspecified abdominal pain; R51.9 Headache, unspecified; R53.1 Weakness | CPT/HCPCS: A0425; A0427 ==

== ENCOUNTER 2022-09-08 10:33 | Outpatient (CLI) | payer MEDICARE, MEDICAID ==
--- NOTE | 2022-09-08 11:21 | XRAY Report ---
PROCEDURE: Chest 2 View X-Ray INDICATIONS: COPD TECHNIQUE: 2 views of the chest were acquired. COMPARISON: 08/29/2017 FINDINGS: Surgical changes and devices: None. Lungs and pleura: No pleural effusions or pneumothorax. Lungs are clear. Mediastinum: Mediastinal contours are normal. Heart size is normal. Bones and chest wall: No suspicious bony abnormalities. Soft tissues appear unremarkable. IMPRESSION: No evidence acute pulmonary process. Reviewed by: Kvng Brewster MD on 09/08/2022 11:20 AM PST Approved by: Kvng Brewster MD on 09/08/2022 11:20 AM PST Station ID: [id number]
== END 2022-09-08 10:34 | disposition home or self-care (01) ==
LOC: DI 10:33
PROVIDERS: ATTEND Physician Assistant Medical
DX: J44.9 Chronic obstructive pulmonary disease, unspecified (principal)

== ENCOUNTER 2022-09-15 12:14 | Outpatient (CLI) | payer MEDICAID, MEDICARE | END 2022-09-15 12:15 | disposition home or self-care (01) | LOC: DI 12:14 | PROVIDERS: ATTEND Physician Assistant Medical | DX: R60.9 Edema, unspecified (principal) | CPT/HCPCS: 93306 ==

== ENCOUNTER 2022-10-11 14:52 | Emergency (ER) | payer MEDICARE ==
[2022-10-11 15:25] LABS: BASOPHILS % (AUTO) 0.3 %; EOSINOPHILS # (AUTO) 0.1 10^3/uL (0.0-0.7); EOSINOPHILS % (AUTO) 0.5 %; HCT - HEMATOCRIT 45.5 % (37.0-47.0); HGB - HEMOGLOBIN 14.7 g/dL (12.0-16.0); LYMPHOCYTES # (AUTO) 2.4 10^3/uL (1.5-3.5); MEAN CORPUSCULAR HEMOGLOBIN 31.9 pg (27.0-31.0); MEAN CORPUSCULAR HGB CONC 32.3 g/dL (32.0-36.0); MEAN CORPUSCULAR VOLUME 98.7 fL (81.0-99.0); MEAN PLATELET VOLUME 8.5 fL (7.9-10.8); MONOCYTES # (AUTO) 0.6 10^3/uL (0.0-1.0); MONOCYTES % (AUTO) 4.8 %; NEUTROPHILS # (AUTO) 8.9 10^3/uL (1.5-6.6); PLT - PLATELET COUNT 307 10^3/uL (130-450); RED BLOOD COUNT 4.61 10^6/uL (4.20-5.40); RED CELL DISTRIBUTION WIDTH 12.7 % (12.0-15.0)
[2022-10-11 15:36] LABS: ALBUMIN 3.8 g/dL (3.2-5.5); ALBUMIN/GLOBULIN RATIO 1.2 (1.0-2.2); BILIRUBIN,TOTAL 0.8 mg/dL (0.2-1.0); CALCIUM 10.4 mg/dL (8.5-10.3); CREATININE 0.7 mg/dL (0.4-1.0); POTASSIUM 3.7 mmol/L (3.5-5.0); TOTAL PROTEIN 6.9 g/dL (6.7-8.2)
[2022-10-11] MEDS ORDERED: KETOROLAC 30 MG/ML VIAL IVP STA (16:46)
[2022-10-11] MEDS ORDERED: SODIUM CHLORIDE 0.9% 1,000 ML IV STA ×2 (16:46)
[2022-10-11] MEDS ORDERED: ONDANSETRON 4 MG/2 ML VIAL IVP STA (16:46)
[2022-10-11] MEDS ORDERED: HYDROmorphone 1 MG/ML CARPUJECT IVP STA ×2 (17:17→20:12)
--- NOTE | 2022-10-11 17:19 | ED Physician Documentation ---
PD HPI ABD PAIN - Stated complaint Stated Complaint: FLANK PX - Chief complaint Chief Complaint: Abd Pain - History obtained from History obtained from: Patient, Family - Additional information Additional information: 77-year-old female presents to the emergency department complaining of abdominal pain. She states that this started this morning. She states that it is on the left side of the abdomen. Nothing seems to make it better or worse. Has had nausea, vomiting and constipation today. She does have a history of kidney stones but is unsure if this feels similar or not. She states she also has chronic back pain. No fevers. No chills. No cough. She has had a cholecystectomy, appendectomy and tubal ligation in the past. Review of Systems Constitutional: denies: Fever, Chills Respiratory: denies: Cough Skin: denies: Rash Musculoskeletal: denies: Neck pain Neurologic: denies: Headache PD PAST MEDICAL HISTORY - Past Medical History Cardiovascular: Hypertension, High cholesterol Respiratory: COPD Endocrine/Autoimmune: Type 2 diabetes GI: None, Other (diverticula but no prior diverticulitis. 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 - Present Medications Home Medications: Ambulatory Orders Medication Instructions Recorded Confirmed LORazepam [Ativan] 0.5 mg PO Q6H PRN #7 tablet 03/15/16 02/04/21 hydroCHLOROthiazide 25 mg PO DAILY 03/15/16 02/04/21 [Hydrochlorothiazide] lisinopriL [Lisinopril] 20 mg PO DAILY 03/15/16 02/04/21 metFORMIN [Glucophage] 500 mg PO DAILY 03/15/16 02/04/21 Citalopram [CeleXA] 40 mg PO ONCE 10/12/17 02/04/21 Atorvastatin Calcium 40 mg PO DAILY 02/20/19 02/04/21 Metoprolol Succinate 25 mg PO BID 02/20/19 02/04/21 Gabapentin [Neurontin] 200 mg PO BID 02/04/21 02/04/21 Naproxen 375 mg PO BID 02/04/21 02/04/21 HYDROcod/ACETAM 5/325 [[place] 5/325] 1 - 2 tab PO Q6H PRN #20 tablet 11/13/21 Loperamide [Imodium] 2 mg PO QID PRN #10 cap 11/13/21 Ondansetron Odt [Zofran] 4 mg TL Q6H PRN #10 tablet 11/13/21 Diphenoxylate/Atropine [Lomotil] 1 each PO QID PRN #8 tablet 02/24/22 Ondansetron Odt [Zofran] 4 mg TL Q6H PRN #10 tablet 02/24/22 Ciprofloxacin HCl [Cipro] 500 mg PO BID #10 tablet 07/07/22 Loperamide [Imodium] 2 mg PO QID PRN #10 cap 07/07/22 metroNIDAZOLE [Flagyl] 500 mg PO BID 5 Days #10 tablet 07/07/22 Meloxicam [Mobic] 7.5 mg PO BID PRN #20 tablet 10/11/22 Ondansetron Odt [Zofran] 4 mg TL Q6H PRN #10 tablet 10/11/22 oxyCODONE [Roxicodone] 5 - 10 mg PO Q6H PRN #14 tablet 10/11/22 MDD 6 - Allergies Allergies/Adverse Reactions: Allergies Allergy/AdvReac Type Severity Reaction Status Date / Time Sulfa (Sulfonamide Allergy Itching Verified 10/11/22 15:04 Antibiotics) - Social History Does the pt smoke?: Yes Smoking Status: Current every day smoker Does the pt drink ETOH?: No Does the pt have substance abuse?: No - Immunizations Immunizations are current?: No Immunizations: TDAP >10years/unknown - POLST Patient has POLST: No PD ED PE NORMAL - Vitals Vital signs reviewed: Yes - General General: Alert and oriented X 3, No acute distress - HEENT HEENT: Moist mucous membranes - Neck Neck: Supple, no meningeal sign - Cardiac Cardiac: RRR, Strong equal pulses - Respiratory Respiratory: No respiratory distress, Clear bilaterally - Abdomen Abdomen: Soft, Non tender, Non distended - Back Back: No CVA TTP, No spinal TTP - Derm Derm: Warm and dry - Extremities Extremities: No edema - Neuro Neuro: Alert and oriented X 3 - Psych Psych: Normal mood, Normal affect Results - Vitals Vitals: Vital Signs - 24 hr 10/11/22 10/11/22 19:12 21:07 Temperature 36.9 C Heart Rate 89 87 Respiratory 18 17 Rate Blood Pressure 179/82 H 158/73 H O2 Saturation 98 97 Oxygen O2 Source Room air - Labs Labs: Laboratory Tests 10/11/22 10/11/22 10/11/22 15:21 15:21 19:00 WBC 12.0 H RBC 4.61 Hgb 14.7 Hct 45.5 MCV 98.7 MCH 31.9 H MCHC 32.3 RDW 12.7 Plt Count 307 MPV 8.5 Neut # (Auto) 8.9 H Lymph # (Auto) 2.4 [place] # (Auto) 0.6 Eos # (Auto) 0.1 Baso # (Auto) 0.0 Absolute Nucleated RBC 0.00 Nucleated RBC % 0.0 Sodium 142 Potassium 3.7 Chloride 104 Carbon Dioxide 22 Anion Gap 16.0 H BUN 20 Creatinine 0.7 Estimated GFR (MDRD) 81 L Glucose 192 H Calcium 10.4 H Total Bilirubin 0.8 AST 18 ALT 15 Alkaline Phosphatase 96 Total Protein 6.9 Albumin 3.8 Globulin 3.1 Albumin/Globulin Ratio 1.2 Lipase 34 Urine Color YELLOW Urine Clarity HAZY Urine pH 6.0 Ur Specific [place] 1.015 Urine Protein NEGATIVE Urine Glucose (UA) NEGATIVE Urine Ketones 40 H Urine Occult Blood LARGE H Urine Nitrite NEGATIVE Urine Bilirubin NEGATIVE Urine Urobilinogen 0.2 (NORMAL) Ur Leukocyte Esterase NEGATIVE Urine RBC TNTC H Urine WBC 0-3 Ur Squamous Epith Cells FEW Squamous Urine Bacteria Rare Ur Microscopic Review INDICATED Urine Culture Comments NOT INDICATED - Rads (name of study) CT abd/pelvis Radiology: Final report received, See rad report PD Medical Decision Making - ED course Complexity details: reviewed results, re-evaluated patient, considered differential, d/w patient ED course: 77-year-old female with left flank and abdominal pain. Mildly elevated white blood cell count at 12,000. Her ER abdominal panel has a mildly elevated anion gap, mildly elevated glucose and mildly elevated calcium. Urinalysis does not show any signs of infection, but does show blood. Her CT scan shows a 3 mm left UVJ stone. Pain is well controlled with IV Dilaudid and Toradol. She also has a growing low-density lesion in the right mid kidney. She will follow-up with her doctor for a dedicated renal ultrasound or renal mass protocol CT. We will prescribe pain medication for home and have her follow-up with her doctor for further care. No sepsis. Patient counseled regarding signs and symptoms for which I believe and urgent re-evaluation would be necessary. Patient with good understanding of and agreement to plan and is comfortable going home at this time This document was made in part using voice recognition software. While efforts are made to proofread this document, sound alike and grammatical errors may occur. IMPRESSION: Obstructing 3 mm stone at the left ureterovesicular junction, with associated left- sided hydroureter and hydronephrosis. Irregular nonobstructing left-sided kidney stones are seen. Within the right mid kidney, there is a growing low-density lesion that cannot be defined as a simple cyst. Differential diagnosis includes low-density renal neoplasm and a complex cyst. Further workup is recommended, either beginning with a dedicated renal ultrasound or a renal mass protocol CT without and with IV contrast. Departure - Departure Disposition: 01 Home, Self Care Clinical Impression: Ureteral colic Condition: Good Instructions: ED Stone Renal W Colic Follow-Up: your,doctor in 1 week [Other] Prescriptions: Meloxicam [Mobic] 7.5 mg PO BID PRN #20 tablet PRN Reason: Pain oxyCODONE [Roxicodone] 5 - 10 mg PO Q6H PRN #14 tablet MDD 6 PRN Reason: pain Ondansetron Odt [Zofran] 4 mg TL Q6H PRN #10 tablet PRN Reason: Nausea / Vomiting Comments: Please follow up with your doctor for further care. You have a 3 mm left ureteral stone. This has a greater than 95% chance of passing on its own. Please drink plenty of water. You also have a low-density lesion in the right mid kidney, your doctor will need to order either a dedicated renal ultrasound or a renal mass protocol CT with and without IV contrast for further identi fication of this. Please contact your doctors office tomorrow to have this scheduled. Your prescriptions were sent to [facility] in [place]. IMPRESSION: Obstructing 3 mm stone at the left ureterovesicular junction, with associated left- sided hydroureter and hydronephrosis. Irregular nonobstructing left-sided kidney stones are seen. Within the right mid kidney, there is a growing low-density lesion that cannot be defined as a simple cyst. Differential diagnosis includes low-density renal neoplasm and a complex cyst. Further workup is recommended, either beginning with a dedicated renal ultrasound or a renal mass protocol CT without and with IV contrast. Additional findings: Cholecystectomy Levoconvex scoliotic curvature Lumbar spine degenerative change Right hip arthroplasty hardware I am prescribing a short course of narcotic pain medication for you. These are potentially dangerous and addictive medications that should be used carefully. These medications may constipate you. Take an bkhs-ymm-fxebkso stool softener (docusate) twice daily with plenty of water while taking these medications. If you go 24 hours without a bowel movement, take ewbz-kwf-untpuem miralax, per package instructions. Do not drink or drive while taking these medications. If you received narcotic or sedating medications while in the emergency department, do not drive for 24 hours. Store this medication in a safe, secure place and out of reach of children. It is a violation of federal law to give or sell this medication to another person or to use in a manner other than prescribed. The ED will not refill narcotic prescriptions, including prescriptions lost or stolen. To dispose of unwanted medications: 1. [facility] at [address] in [place] has a medication drop box. They accept prescription medications (in pill form) Tuesday through Tuesday 9:00 a.m. to 5:00 p.m. 2. The [facility] Police Department accepts prescription medications (in pill form only) for disposal year round. Call for more information. 3. Contact the [facility] for the next [facility] sponsored prescription drug collection event. , [phone], or [phone]; Discharge Date/Time: 10/11/22 21:08
[2022-10-11] MEDS ORDERED: iohexoL-300 100 ML VIAL ONE (17:23)
[2022-10-11] MEDS ORDERED: iohexoL-300 100 ML VIAL IVP ONE (18:00)
--- NOTE | 2022-10-11 18:13 | CT Report ---
PROCEDURE: ABDOMEN/PELVIS W INDICATIONS: LLQ abd pain CONTRAST: 100mL Omni 300 TECHNIQUE: After the administration of IV contrast, 5 mm thick sections acquired from the diaphragms to the symp hysis. 5 mm thick coronal and sagittal reformats were acquired. For radiation dose reduction, the f ollowing was used: automated exposure control, adjustment of mA and/or kV according to patient size. COMPARISON: 02/24/2022. 07/01/2020 FINDINGS: Image quality: There is streak artifact seen through the upper abdomen. ABDOMEN: Lung bases: Lung bases are clear. Heart size is normal. Solid organs: Liver and spleen are normal in size and enhancement. Gallbladder has been removed. Biliary system is non dilated. Pancreas enhances normally. No adrenal nodules. There is an obstructing stone seen at the left ureterovesicular junction measuring 3 mm, as on series 3 image 65 and on series 6 image 36. There is associated left-sided hydroureter and hydronephrosis. Irregular stones can be seen within the left kidney inferiorly, which measure up to 1.4 cm, when savana ured together. Within the right mid kidney, there is a low-density lesion seen that measures greater than 60 Hounsfi eld units and cannot be defined as a simple cyst, measuring up to 1.8 cm craniocaudal, as on series 6 image 39. In 2020, this measured up to 11 mm. Peritoneum and bowel: Bowel loops demonstrate normal wall thickness and caliber. No free fluid or a ir. Nodes and vessels: No retroperitoneal or mesenteric adenopathy by size criteria. Aorta and inferior vena cava are normal in size. Atherosclerotic calcification is seen. Miscellaneous: No ventral hernias. PELVIS: Genitourinary: Bladder wall thickness is normal. Miscellaneous: No inguinal hernias or adenopathy. Bones: No suspicious bony lesions. No vertebral body compression fractures. Age-appropriate degene rative changes are seen. Mild levoconvex scoliotic curvature is seen. Degenerative changes are seen throughout, which are worst involving the lumbar spine. Right hip arthroplasty hardware can be seen. IMPRESSION: Obstructing 3 mm stone at the left ureterovesicular junction, with associated left-sided hydroureter and hydronephrosis. Irregular nonobstructing left-sided kidney stones are seen. Within the right mid kidney, there is a growing low-density lesion that cannot be defined as a simple cyst. Differential diagnosis includes low-density renal neoplasm and a complex cyst. Further workup is recommended, either beginning with a dedicated renal ultrasound or a renal mass protocol CT withou t and with IV contrast. Additional findings: Cholecystectomy Levoconvex scoliotic curvature Lumbar spine degenerative change Right hip arthroplasty hardware Reviewed by: Shan Valentine MD on 10/11/2022 5:12 PM [facility] Approved by: Shan Valentine MD on 10/11/2022 5:12 PM [facility] Station ID: [id number]
[2022-10-11 20:05] LABS: BILIRUBIN,URINE NEGATIVE (NEGATIVE); GLUCOSE, URINE (UA) NEGATIVE (NEGATIVE); KETONES,URINE (UA) 40 mg/dL (NEGATIVE); LEUKOCYTE ESTERASE, URINE NEGATIVE (NEGATIVE); NITRITE,URINE NEGATIVE (NEGATIVE); OCCULT BLOOD,URINE LARGE (NEGATIVE); PROTEIN,URINE NEGATIVE (NEGATIVE); UROBILINOGEN,URINE 0.2 (NORMAL) E.U./dL (NORMAL)
[2022-10-11 20:08] LABS: CLARITY,URINE HAZY (CLEAR)
[2022-10-11] MEDS ORDERED: oxyCODONE 5 MG TABLET PO STA (20:12)
[2022-10-11 20:17] LABS: BACTERIA,URINE Rare /HPF (None Seen); RBC,URINE TNTC /HPF (0-5); SQUAMOUS EPITHELIAL CELL,UR FEW Squamous (<= Few); WBC,URINE 0-3 /HPF (0-5)
[2022-10-11] MEDS ORDERED: oxyCODONE/ACET 5/325 Prepack 4 PO STA (20:55)
[2022-10-11 21:08] VITALS: BP 158/73
== END 2022-10-11 21:08 | disposition home or self-care (01) ==
LOC: ED 14:52
DX: N13.2 Hydronephrosis with renal and ureteral calculous obstruction (principal); I10 Essential (primary) hypertension; J44.9 Chronic obstructive pulmonary disease, unspecified; E11.9 Type 2 diabetes mellitus without complications; E78.00 Pure hypercholesterolemia, unspecified; Z79.899 Other long term (current) drug therapy; Z79.84 Long term (current) use of oral hypoglycemic drugs; Z87.442 Personal history of urinary calculi
CPT/HCPCS: 36415; 74177; 80053; 81001; 83690; 85025; 99283; 99284; A9270; J1170; Q9967; 81003; 87086

== ENCOUNTER 2022-10-17 06:54 | Outpatient (CLI) | payer MEDICARE | END 2022-10-17 06:55 | disposition EMS.NT | LOC: EMS 06:54 | DX: Z03.89 Encounter for observation for other suspected diseases and conditions ruled out (principal) ==

== ENCOUNTER 2022-11-07 10:29 | Outpatient (CLI) | payer MEDICARE, MEDICAID | END 2022-11-07 10:30 | disposition critical access hospital (66) | LOC: EMS 10:29 | DX: R11.0 Nausea (principal); R19.7 Diarrhea, unspecified; R10.817 Generalized abdominal tenderness | CPT/HCPCS: A0425; A0427 ==

== ENCOUNTER 2022-11-07 10:48 | Emergency (ER) | payer MEDICARE, MEDICAID ==
[2022-11-07] MEDS ORDERED: SODIUM CHLORIDE 0.9% 1,000 ML IV STA (11:15)
[2022-11-07] MEDS ORDERED: ONDANSETRON 4 MG/2 ML VIAL IVP STA (11:15)
[2022-11-07 11:39] LABS: BASOPHILS % (AUTO) 0.3 %; EOSINOPHILS # (AUTO) 0.1 10^3/uL (0.0-0.7); EOSINOPHILS % (AUTO) 0.7 %; HCT - HEMATOCRIT 43.1 % (37.0-47.0); HGB - HEMOGLOBIN 13.9 g/dL (12.0-16.0); LYMPHOCYTES # (AUTO) 1.6 10^3/uL (1.5-3.5); LYMPHOCYTES % (AUTO) 22.7 %; MEAN CORPUSCULAR HEMOGLOBIN 31.8 pg (27.0-31.0); MEAN CORPUSCULAR HGB CONC 32.3 g/dL (32.0-36.0); MEAN CORPUSCULAR VOLUME 98.6 fL (81.0-99.0); MEAN PLATELET VOLUME 8.8 fL (7.9-10.8); MONOCYTES # (AUTO) 0.6 10^3/uL (0.0-1.0); NEUTROPHILS # (AUTO) 4.7 10^3/uL (1.5-6.6); NEUTROPHILS % (AUTO) 67.2 %; PLT - PLATELET COUNT 251 10^3/uL (130-450); RED BLOOD COUNT 4.37 10^6/uL (4.20-5.40)
[2022-11-07 11:48] LABS: ALBUMIN 3.5 g/dL (3.2-5.5); ALBUMIN/GLOBULIN RATIO 1.3 (1.0-2.2); BILIRUBIN,TOTAL 0.8 mg/dL (0.2-1.0); CALCIUM 8.4 mg/dL (8.5-10.3); CREATININE 0.5 mg/dL (0.4-1.0); POTASSIUM 3.1 mmol/L (3.5-5.0); TOTAL PROTEIN 6.3 g/dL (6.7-8.2)
[2022-11-07] MEDS ORDERED: PROMETHAZINE INJ 12.5 MG in SODIUM CHLORIDE 0.9% 50 ML IV STA (13:14)
--- NOTE | 2022-11-07 14:26 | ED Physician Documentation ---
History of Present Illness - Stated complaint Stated Complaint: NAUSEA/DIARRHEA - Chief complaint Chief Complaint: General - History obtained from History obtained from: Patient, EMS - Additonal information Additional information: The patient comes to the emergency department with chief complaint of nausea vomiting and diarrhea. This has been going on for the last couple of days. The patient states she has "a lot of other chronic medical issues" and that this just piles on top of everything else, but that the reason she is here is for the vomiting and diarrhea. The patient denies any fevers or chills. No dysuria. No back pain. No upper respiratory symptoms. She states she did take some Imodium last night and that she still feels like she has somewhat of an urge to have a bowel movement but she is not having diarrhea anymore. She has been able to hold down clear liquids since yesterday. No other complaints at this time. PD PAST MEDICAL HISTORY - Past Medical History Cardiovascular: Hypertension, High cholesterol Respiratory: COPD Endocrine/Autoimmune: Type 2 diabetes GI: None, Other (diverticula but no prior diverticulitis. 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 - Present Medications Home Medications: Ambulatory Orders Medication Instructions Recorded Confirmed LORazepam [Ativan] 0.5 mg PO Q6H PRN #7 tablet 03/15/16 02/04/21 hydroCHLOROthiazide 25 mg PO DAILY 03/15/16 02/04/21 [Hydrochlorothiazide] lisinopriL [Lisinopril] 20 mg PO DAILY 03/15/16 02/04/21 metFORMIN [Glucophage] 500 mg PO DAILY 03/15/16 02/04/21 Citalopram [CeleXA] 40 mg PO ONCE 10/12/17 02/04/21 Atorvastatin Calcium 40 mg PO DAILY 02/20/19 02/04/21 Metoprolol Succinate 25 mg PO BID 02/20/19 02/04/21 Gabapentin [Neurontin] 200 mg PO BID 02/04/21 02/04/21 Naproxen 375 mg PO BID 02/04/21 02/04/21 HYDROcod/ACETAM 5/325 [[place] 5/325] 1 - 2 tab PO Q6H PRN #20 tablet 11/13/21 Loperamide [Imodium] 2 mg PO QID PRN #10 cap 11/13/21 Ondansetron Odt [Zofran] 4 mg TL Q6H PRN #10 tablet 11/13/21 Diphenoxylate/Atropine [Lomotil] 1 each PO QID PRN #8 tablet 02/24/22 Ondansetron Odt [Zofran] 4 mg TL Q6H PRN #10 tablet 02/24/22 Ciprofloxacin HCl [Cipro] 500 mg PO BID #10 tablet 07/07/22 Loperamide [Imodium] 2 mg PO QID PRN #10 cap 07/07/22 metroNIDAZOLE [Flagyl] 500 mg PO BID 5 Days #10 tablet 07/07/22 Meloxicam [Mobic] 7.5 mg PO BID PRN #20 tablet 10/11/22 Ondansetron Odt [Zofran] 4 mg TL Q6H PRN #10 tablet 10/11/22 oxyCODONE [Roxicodone] 5 - 10 mg PO Q6H PRN #14 tablet 10/11/22 MDD 6 Ondansetron Odt [Zofran] 4 mg TL Q6H PRN #20 tablet 11/07/22 - Allergies Allergies/Adverse Reactions: Allergies Allergy/AdvReac Type Severity Reaction Status Date / Time Sulfa (Sulfonamide Allergy Itching Verified 10/11/22 15:04 Antibiotics) - Social History Does the pt smoke?: Yes Smoking Status: Current every day smoker Does the pt drink ETOH?: No Does the pt have substance abuse?: No - Immunizations Immunizations are current?: No Immunizations: TDAP >10years/unknown - POLST Patient has POLST: No PD ED PE NORMAL - Vitals Vital signs reviewed: Yes - General General: Alert and oriented X 3, No acute distress, Well developed/nourished - HEENT HEENT: Atraumatic, PERRL, EOMI, Moist mucous membranes - Neck Neck: Supple, no meningeal sign - Cardiac Cardiac: RRR, No murmur - Respiratory Respiratory: No respiratory distress, Clear bilaterally - Abdomen Abdomen: Soft, Non tender, Non distended - Derm Derm: Normal color, Warm and dry, No rash - Extremities Extremities: No deformity - Neuro Neuro: Alert and oriented X 3 - Psych Psych: Normal mood, Normal affect Results - Vitals Vitals: Vital Signs - 24 hr 11/07/22 11/07/22 11/07/22 10:54 11:26 14:49 Temperature 36.2 C L Heart Rate 75 77 65 Respiratory 20 18 18 Rate Blood Pressure 181/78 H 169/77 H 190/86 H O2 Saturation 96 96 96 Oxygen O2 Source Room air - Labs Labs: Laboratory Tests 11/07/22 11/07/22 11:25 11:25 WBC 7.0 RBC 4.37 Hgb 13.9 Hct 43.1 MCV 98.6 MCH 31.8 H MCHC 32.3 RDW 12.0 Plt Count 251 MPV 8.8 Neut # (Auto) 4.7 Lymph # (Auto) 1.6 [place] # (Auto) 0.6 Eos # (Auto) 0.1 Baso # (Auto) 0.0 Absolute Nucleated RBC 0.00 Nucleated RBC % 0.0 Sodium 139 Potassium 3.1 L Chloride 104 Carbon Dioxide 26 Anion Gap 9.0 BUN 23 H Creatinine 0.5 Estimated GFR (MDRD) 120 Glucose 105 H Calcium 8.4 L Total Bilirubin 0.8 AST 15 ALT 12 Alkaline Phosphatase 79 Total Protein 6.3 L Albumin 3.5 Globulin 2.8 Albumin/Globulin Ratio 1.3 Lipase 35 PD Medical Decision Making - ED course Complexity details: reviewed old records, reviewed results, re-evaluated patient, considered differential, d/w patient ED course: The pt was treated symptomatically with IV fluids, Zofran, and Phenergan. She was found to be sitting up on the edge of the bed, and reported that her nausea was gone. She was worked up with labs, including CBC and ER abdominal panel, which were ordered and reviewed by me, and showed mild hypokalemia. The pt is stable for d/c home. She was already holding down some clear liquids at home, and I have prescribed her Zofran. We have discussed the usual indications for follow-up and return. Departure - Departure Disposition: 01 Home, Self Care Clinical Impression: Gastroenteritis Condition: Stable Instructions: ED Gastroenteritis Viral Prescriptions: Ondansetron Odt [Zofran] 4 mg TL Q6H PRN #20 tablet PRN Reason: Nausea / Vomiting Comments: Your labs look good overall. You have a very slightly decreased potassium, which will correct itself once your vomiting and diarrhea have resolved. You should take the nausea medicine prescribed, as needed, and get plenty of clear liquids. Although it is not pleasant to be ill with this kind of illness, it is viral and is expected to pass on its own in the next several days to a week. You will need to just get plenty of rest and focus on getting fluids until then. Please follow-up with your primary care physician as needed. The prescription for your nausea medicine has been electronically transmitted to the [facility] pharmacy in [place], at your request. Discharge Date/Time: 11/07/22 14:49
[2022-11-07 14:50] VITALS: BP 190/86
== END 2022-11-07 14:49 | disposition home or self-care (01) ==
LOC: EDUNIT# → ED 10:48
DX: K52.9 Noninfective gastroenteritis and colitis, unspecified (principal); I10 Essential (primary) hypertension; E11.9 Type 2 diabetes mellitus without complications; Z79.84 Long term (current) use of oral hypoglycemic drugs; F17.200 Nicotine dependence, unspecified, uncomplicated
CPT/HCPCS: 36415; 80053; 83690; 85025; 96365; 96375; 99283; 99284; J7040

== ENCOUNTER 2022-12-08 15:51 | Outpatient (CLI) | payer MEDICARE, MEDICAID ==
--- NOTE | 2022-12-08 17:43 | Ultrasound Report ---
PROCEDURE: Retroperitoneal INDICATIONS: RIGHT RENAL CYST TECHNIQUE: Real-time scanning was performed of the retroperitoneal organs, with image documentation. COMPARISON: CT 10/11/2022 FINDINGS: Kidneys: Kidneys are normal in size. Right kidney measures 11.5 cm long; left kidney measures 10.8 cm long. Right renal cortical thickness is 1.4 cm; left renal cortical thickness is 1.5 cm. No sanjay d masses, hydronephrosis. Benign right renal cortical cyst. Suspect benign left renal cortical cyst measuring 1.7 cm. 4 mm stone in the mid pole of the left kidney. Bladder: Pre-void bladder volume is 58 mL. Pre-void images demonstrate no intraluminal masses or sto alrry. On pre-void images, neither ureteral jets are noted with color Doppler interrogation. (Of note , ureteral jets may not be detectable in up to 25% of cases due to insufficient differences in specif ic gravity between ureteral and bladder urine). Miscellaneous: No free abdominal fluid. IMPRESSION: The previously described indeterminate right renal cystic lesion appears simple on today's examinatio n. This is therefore benign. Resolved left-sided hydronephrosis. Similar stones in the inferior pole of the left kidney. Reviewed by: Flex Hernandez on 12/08/2022 5:42 PM PDT Approved by: Flex Hernandez on 12/08/2022 5:42 PM PDT Station ID: [id number]
== END 2022-12-08 15:52 | disposition home or self-care (01) ==
LOC: DI 15:51
PROVIDERS: ATTEND Family Medicine
DX: N28.1 Cyst of kidney, acquired (principal); N20.0 Calculus of kidney

== ENCOUNTER 2023-10-04 00:26 | Outpatient (CLI) | payer MEDICARE, MEDICAID | END 2023-10-04 23:59 | disposition EMS.NT | LOC: EMS 00:26 | DX: Z03.89 Encounter for observation for other suspected diseases and conditions ruled out (principal) ==

== ENCOUNTER 2023-12-05 07:27 | Outpatient (CLI) | payer MEDICARE, MEDICAID ==
[2023-12-05 12:12] LABS: BASOPHILS # (AUTO) 0.1 10^3/uL (0.0-0.1); BASOPHILS % (AUTO) 0.6 %; EOSINOPHILS # (AUTO) 0.1 10^3/uL (0.0-0.7); EOSINOPHILS % (AUTO) 1.4 %; HCT - HEMATOCRIT 48.7 % (37.0-47.0); HGB - HEMOGLOBIN 15.6 g/dL (12.0-16.0); LYMPHOCYTES # (AUTO) 2.6 10^3/uL (1.5-3.5); LYMPHOCYTES % (AUTO) 29.2 %; MEAN PLATELET VOLUME 9.4 fL (7.9-10.8); MONOCYTES # (AUTO) 0.5 10^3/uL (0.0-1.0); MONOCYTES % (AUTO) 5.9 %; NEUTROPHILS # (AUTO) 5.6 10^3/uL (1.5-6.6); NEUTROPHILS % (AUTO) 62.6 %; PLT - PLATELET COUNT 306 10^3/uL (130-450); RED BLOOD COUNT 4.87 10^6/uL (4.20-5.40); RED CELL DISTRIBUTION WIDTH 12.2 % (12.0-15.0); WHITE BLOOD COUNT 8.9 x10^3/uL (4.8-10.8)
[2023-12-05 12:39] LABS: ALBUMIN/GLOBULIN RATIO 1.5 (1.0-2.2); ALKALINE PHOSPHATASE 121 IU/L (42-121); ALT ALANINE AMINOTRANSFERASE 7 IU/L (10-60); AST ASPARTATE AMINOTRANSFERASE 14 IU/L (10-42); BILIRUBIN,TOTAL 0.6 mg/dL (0.2-1.0); BUN - BLOOD UREA NITROGEN 17 mg/dL (6-20); CALCIUM 9.9 mg/dL (8.5-10.3); CARBON DIOXIDE - CO2 28 mmol/L (21-32); CHLORIDE 103 mmol/L (101-111); CHOL/HDL RATIO 3.3 (<4.4); CHOLESTEROL 218 mg/dL; CREATININE 0.6 mg/dL (0.6-1.3); GFR - MDRD 97 (>89); GLUCOSE 107 mg/dL (74-104); HDL CHOLESTEROL 66 mg/dL; LDL CHOLESTEROL,CALCULATED 120 mg/dL; LDL/HDL RATIO 1.8 (<4.4); POTASSIUM 4.3 mmol/L (3.5-4.5); SODIUM 138 mmol/L (135-145); TOTAL PROTEIN 6.7 g/dL (6.4-8.9); TRIGLYCERIDES 158 mg/dL (48-352); VLDL CHOLESTEROL 32 mg/dL
[2023-12-05 12:45] LABS: THYROID STIMULATING HORMONE 1.86 uIU/mL (0.34-5.60)
[2023-12-05 12:59] LABS: ESTIMATED AVERAGE GLUCOSE 123 mg/dL (70-100); HEMOGLOBIN A1c% 5.9 % (4.27-6.07)
== END 2023-12-05 07:28 | disposition home or self-care (01) ==
LOC: LAB.N 07:27
PROVIDERS: ATTEND Family Medicine
DX: F41.8 Other specified anxiety disorders (principal); M54.9 Dorsalgia, unspecified; G89.29 Other chronic pain; F17.200 Nicotine dependence, unspecified, uncomplicated; J44.9 Chronic obstructive pulmonary disease, unspecified; E11.9 Type 2 diabetes mellitus without complications; M79.7 Fibromyalgia; I10 Essential (primary) hypertension
CPT/HCPCS: 36415; 80053; 80061; 83036; 83721; 84443; 85025

== ENCOUNTER 2024-01-13 13:54 | Emergency (ER) | payer MEDICARE, MEDICAID ==
--- NOTE | 2024-01-13 14:15 | ED Physician Documentation ---
PD HPI LOWER EXT INJURY - Stated complaint Stated Complaint: BLOOD CLOT - Chief complaint Chief Complaint: Ext Problem - History obtained from History obtained from: Patient - History of Present Illness PD HPI LOW EXT INJURY LOCATION: Left, Lower leg, Ankle Type of injury: Other (ongoing edema in both legs for many months. Not improved with elevating nor wraps. Has had more swelling and pain left leg the past few weeks. Referred for outpt US which showed a DVT left femoral down to ankle. Sent to ER to initiate treatment. No CP nor dyspnea.). No: Fall, Twist Timing - duration: Months Timing - details: Gradual onset, Still present Review of Systems Constitutional: denies: Fever, Chills Nose: denies: Epistaxis GI: denies: Bloody / black stool : denies: Hematuria, Vaginal bleeding Endocrine: denies: Weight loss, Easy bruising / bleeding PD PAST MEDICAL HISTORY - Past Medical History Past Medical History: Yes Cardiovascular: Hypertension, High cholesterol Respiratory: COPD Endocrine/Autoimmune: Type 2 diabetes GI: None, Other : Kidney stones Psych: Depression, Anxiety Musculoskeletal: Osteoarthritis, Chronic back pain Derm: None - Past Surgical History Past Surgical History: No General: Cholecystectomy, Appendectomy 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 - Present Medications Home Medications: Ambulatory Orders Medication Instructions Recorded Confirmed hydroCHLOROthiazide 25 mg PO DAILY 03/15/16 01/13/24 [Hydrochlorothiazide] Gabapentin [Neurontin] 200 mg PO BID 02/04/21 01/13/24 HYDROcod/ACETAM 5/325 [[place] 5/325] 1 - 2 tab PO Q6H PRN #20 tablet 11/13/21 01/13/24 Apixaban [Eliquis] 5 mg PO BID #70 tablet 01/13/24 Buspirone HCl 15 mg PO BID 01/13/24 01/13/24 Citalopram Hydrobromide 40 mg PO DAILY 01/13/24 01/13/24 [Citalopram HBr] Losartan [Cozaar] 50 mg PO DAILY 01/13/24 01/13/24 - Allergies Allergies/Adverse Reactions: Allergies Allergy/AdvReac Type Severity Reaction Status Date / Time Sulfa (Sulfonamide Allergy Itching Verified 01/13/24 14:04 Antibiotics) - Social History Does the pt smoke?: Yes Smoking Status: Current every day smoker Does the pt drink ETOH?: No Does the pt have substance abuse?: No - Immunizations Immunizations are current?: No Immunizations: TDAP >10years/unknown - POLST Patient has POLST: No PD ED PE NORMAL - Vitals Vital signs reviewed: Yes - General General: Alert and oriented X 3, No acute distress, Well developed/nourished - Derm Derm: Normal color, Warm and dry - Extremities Extremities: Other (chronic stasis or edema skin changes on both lower legs. pitting to nonpitting edema. Some tenderness left calf. Left leg more edmea than right. ) - Neuro Neuro: Alert and oriented X 3, No motor deficit, No sensory deficit, Normal speech Results - Vitals Vitals: Oxygen O2 Source Room air PD Medical Decision Making - ED course Complexity details: considered differential, d/w patient Departure - Departure Disposition: 01 Home, Self Care Clinical Impression: Chronic edema DVT (deep venous thrombosis) Qualifiers: DVT location: lower extremity Affected thrombotic vein of extremity: femoral Chronicity: acute Laterality: left Qualified Code(s): I82.412 - Acute embolism and thrombosis of left femoral vein Condition: Stable Record reviewed to determine appropriate education?: Yes Instructions: ED DVT Follow-Up: Rick Sen MD [Primary Care Provider] - Prescriptions: Apixaban [Eliquis] 5 mg PO BID #70 tablet Comments: I sent a prescription for apixaban/Eliquis to your preferred pharmacy. This particular intake coagulant is taking at 10 mg twice a day for the first week and then decreases to 5 mg twice daily after that. Elevate and rest your leg often to promote return flow through the remaining veins. The preliminary report on your ultrasound showed a clot in the femoral vein down through the popliteal which is behind and knee down to the ankle. The written final radiology report is not yet available. This was the verbal report. The final report should be available to your primary care provider. Commonly the anticoagulants are taken for period of between 3 and 6 months or if the conditions are right for reforming of clots, sometimes is just continued on indefinitely. Tylenol every 4-6 hours if needed for pains. Avoid aspirin and NSAIDs. You were given an injection of a anticoagulant/blood thinner here that should cover you for the immediate today and the initial tablet. Your next dose would be tomorrow morning. Forms: PCP List Discharge Date/Time: 01/13/24 15:22
[2024-01-13] MEDS: ENOXAPARIN 80 MG/0.8 ML SYRINGE SUBQ STA (15:07)
[2024-01-13] MEDS: APIXABAN 5 MG TABLET PO STA (15:08)
[2024-01-13 15:25] VITALS: BP 158/79; O2SAT 99
== END 2024-01-13 15:22 | disposition home or self-care (01) ==
LOC: ED 13:54
DX: I82.412 Acute embolism and thrombosis of left femoral vein (principal); R60.0 Localized edema; I10 Essential (primary) hypertension; E78.00 Pure hypercholesterolemia, unspecified; E11.9 Type 2 diabetes mellitus without complications; J44.9 Chronic obstructive pulmonary disease, unspecified; F17.200 Nicotine dependence, unspecified, uncomplicated; Z79.899 Other long term (current) drug therapy; I83.10 Varicose veins of unspecified lower extremity with inflammation
CPT/HCPCS: 93971; 96372; 99283; A9270; J1650

== ENCOUNTER 2024-01-16 22:31 | Outpatient (CLI) | payer MEDICARE, MEDICAID | END 2024-01-16 23:59 | disposition critical access hospital (66) | LOC: EMS 22:31 | DX: M54.2 Cervicalgia (principal); M25.512 Pain in left shoulder; M79.89 Other specified soft tissue disorders; Z79.01 Long term (current) use of anticoagulants | CPT/HCPCS: A0425; A0429 ==

== ENCOUNTER 2024-01-16 22:49 | Emergency (ER) | payer MEDICARE, MEDICAID ==
[2024-01-16 23:17] LABS: BASOPHILS # (AUTO) 0.1 10^3/uL (0.0-0.1); EOSINOPHILS # (AUTO) 0.1 10^3/uL (0.0-0.7); EOSINOPHILS % (AUTO) 2.1 %; HCT - HEMATOCRIT 44.2 % (37.0-47.0); HGB - HEMOGLOBIN 13.8 g/dL (12.0-16.0); LYMPHOCYTES # (AUTO) 2.1 10^3/uL (1.5-3.5); LYMPHOCYTES % (AUTO) 33.8 %; MEAN CORPUSCULAR HEMOGLOBIN 30.7 pg (27.0-31.0); MEAN CORPUSCULAR HGB CONC 31.2 g/dL (32.0-36.0); MEAN CORPUSCULAR VOLUME 98.2 fL (81.0-99.0); MEAN PLATELET VOLUME 8.6 fL (7.9-10.8); MONOCYTES # (AUTO) 0.6 10^3/uL (0.0-1.0); MONOCYTES % (AUTO) 8.9 %; NEUTROPHILS # (AUTO) 3.3 10^3/uL (1.5-6.6); PLT - PLATELET COUNT 266 10^3/uL (130-450); RED CELL DISTRIBUTION WIDTH 12.6 % (12.0-15.0); WHITE BLOOD COUNT 6.2 x10^3/uL (4.8-10.8)
[2024-01-16 23:23] LABS: INR 1.2 (0.8-1.2)
--- NOTE | 2024-01-16 23:24 | XRAY Report ---
PROCEDURE: Chest 1V INDICATIONS: chest pain TECHNIQUE: One view of the chest was acquired. COMPARISON: None. FINDINGS: Surgical changes and devices: None. Lungs and pleura: No pleural effusions or pneumothorax. Lungs are clear. Mediastinum: Mediastinal contours appear normal. Heart size is normal. Bones and chest wall: No suspicious bony lesions. Overlying soft tissues appear unremarkable. IMPRESSION: No acute cardiopulmonary process. Reviewed by: King Delgado MD on 01/16/2024 11:22 PM PDT Approved by: King Delgado MD on 01/16/2024 11:22 PM PDT Station ID: [id number]
[2024-01-16] MEDS: SODIUM CHLORIDE 0.9% 1,000 ML IV STA (23:28)
[2024-01-16 23:35] LABS: ALBUMIN 3.9 g/dL (3.2-5.5); ALBUMIN/GLOBULIN RATIO 1.8 (1.0-2.2); BILIRUBIN,TOTAL 0.6 mg/dL (0.2-1.0); CALCIUM 9.3 mg/dL (8.5-10.3); CREATININE 0.6 mg/dL (0.6-1.3); POTASSIUM 3.7 mmol/L (3.5-4.5); TOTAL PROTEIN 6.1 g/dL (6.4-8.9)
[2024-01-16 23:58] LABS: TROPONIN I HIGH SENSITIVITY 3.7 ng/L (2.3-14.8)
--- NOTE | 2024-01-17 00:51 | ED Physician Documentation ---
History of Present Illness - Stated complaint Stated Complaint: L SHOULDER PX/NAUSEA - Chief complaint Chief Complaint: Ext Problem - History obtained from History obtained from: Patient - Additonal information Additional information: The patient comes to the emergency department chief complaint of left shoulder pain that started yesterday evening. She states it goes into her left neck. She does not have any chest pain. No other associated symptoms. No shortness of breath, nausea, or vomiting. No diaphoresis. She does not feel ill in any other way. She does have some history of neck and shoulder problems but states this feels little different. It does seem to hurt a little more with certain movements but not distinctly so. Patient states the pain level is generally low about a 3/10. No other complaints at this time. Patient has a history of hypertension, hyperlipidemia, and diabetes. No diagnosed coronary artery disease or any other cardiac issues. She was recently diagnosed with a DVT and has been on anticoagulation for the last several days. She states that she was initially prescribed Eliquis, but could not afford it so she has been on Lovenox shots. 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 - Present Medications Home Medications: Ambulatory Orders Medication Instructions Recorded Confirmed hydroCHLOROthiazide 25 mg PO DAILY 03/15/16 01/13/24 [Hydrochlorothiazide] Gabapentin [Neurontin] 200 mg PO BID 02/04/21 01/13/24 HYDROcod/ACETAM 5/325 [[place] 5/325] 1 - 2 tab PO Q6H PRN #20 tablet 11/13/21 01/13/24 Apixaban [Eliquis] 5 mg PO BID #70 tablet 01/13/24 Buspirone HCl 15 mg PO BID 01/13/24 01/13/24 Citalopram Hydrobromide 40 mg PO DAILY 01/13/24 01/13/24 [Citalopram HBr] Losartan [Cozaar] 50 mg PO DAILY 01/13/24 01/13/24 - Allergies Allergies/Adverse Reactions: Allergies Allergy/AdvReac Type Severity Reaction Status Date / Time Sulfa (Sulfonamide Allergy Itching Verified 01/16/24 22:58 Antibiotics) - Social History Does the pt smoke?: Yes Smoking Status: Current every day smoker Does the pt drink ETOH?: No Does the pt have substance abuse?: No - Immunizations Immunizations are current?: No Immunizations: TDAP >10years/unknown - POLST Patient has POLST: No PD ED PE NORMAL - Vitals Vital signs reviewed: Yes - General General: Alert and oriented X 3, No acute distress, Well developed/nourished - HEENT HEENT: Atraumatic, EOMI, Moist mucous membranes - Neck Neck: Supple, no meningeal sign, No bony TTP, Other (Mild tenderness palpation over left neck musculature. Does not recreate pain.) - Cardiac Cardiac: RRR, No murmur, Strong equal pulses - Respiratory Respiratory: No respiratory distress, Clear bilaterally - Abdomen Abdomen: Soft, Non tender, Non distended - Derm Derm: Normal color, Warm and dry, No rash - Extremities Extremities: No deformity, No edema - Neuro Neuro: Alert and oriented X 3 - Psych Psych: Normal mood, Normal affect Results - Vitals Vitals: Oxygen O2 Source Room air - Labs Labs: Laboratory Tests 01/16/24 01/16/24 01/16/24 23:10 23:10 23:10 WBC 6.2 RBC 4.50 Hgb 13.8 Hct 44.2 MCV 98.2 MCH 30.7 MCHC 31.2 L RDW 12.6 Plt Count 266 MPV 8.6 Neut # (Auto) 3.3 Lymph # (Auto) 2.1 [place] # (Auto) 0.6 Eos # (Auto) 0.1 Baso # (Auto) 0.1 Absolute Nucleated RBC 0.00 Nucleated RBC % 0.0 PT 13.0 H INR 1.2 Sodium 136 Potassium 3.7 Chloride 104 Carbon Dioxide 27 Anion Gap 5.0 L BUN 19 Creatinine 0.6 Estimated GFR (MDRD) 97 Glucose 103 Calcium 9.3 Total Bilirubin 0.6 AST 22 ALT 12 Alkaline Phosphatase 97 Troponin I High Sens 3.7 Total Protein 6.1 L Albumin 3.9 Globulin 2.2 Albumin/Globulin Ratio 1.8 Lipase 46 PD Medical Decision Making - ED course Complexity details: reviewed results, re-evaluated patient, considered differential, d/w patient ED course: Patient overall is very well-appearing and was without complaints other than the pain in her shoulder/neck. There was some mechanical component and some tenderness over the area, but this did not entirely reproduce the symptoms. The patient was worked up with labs including troponin, as well as EKG. Her workup was negative. The patient did not have any vital sign abnormalities and symptoms did not sound consistent with a PE. The patient is already anticoagul ated and given that she does not have any vital sign abnormalities and is otherwise stable, there would not be a change in management at this point in time. She has had the pain for long enough that I would expect the troponin to be positive if she had had an MRI. At this point in time I felt the patient is stable for discharge home. She had been treated symptomatically for her pain and was feeling better. We have discussed the usual indications for return and the need for follow-up with her primary doctor. Departure - Departure Disposition: 01 Home, Self Care Clinical Impression: Shoulder pain, left Qualifiers: Chronicity: acute Qualified Code(s): M25.512 - Pain in left shoulder Condition: Stable Instructions: ED Shoulder Pain [facility] Comments: Your labs, EKG, and chest x-ray all look good. There is nothing whatsoever on your vital signs or exam to indicate a sizable blood clot that has broken loose and gone into your lung circulation. In general, blood clots in the lung are treated in the same way as blood clots in the legs, unless the clot in the lung is big enough to cause low oxygen, low blood pressure, or high heart rate. I suspect the pain is coming from your neck and shoulder itself, rather than from your heart or your lungs. Please follow-up with your primary doctor to discuss long-term treatment of your clot in the leg, as well as the process for following up to see if the clot has resolved. Forms: PCP List Discharge Date/Time: 01/17/24 01:43
[2024-01-17 01:51] VITALS: BP 153/73; O2SAT 99
== END 2024-01-17 01:43 | disposition home or self-care (01) ==
LOC: EDUNIT# → ED 22:49
DX: M25.512 Pain in left shoulder (principal); I10 Essential (primary) hypertension; E78.00 Pure hypercholesterolemia, unspecified; J44.9 Chronic obstructive pulmonary disease, unspecified; E11.9 Type 2 diabetes mellitus without complications; F17.200 Nicotine dependence, unspecified, uncomplicated; Z79.01 Long term (current) use of anticoagulants; Z79.899 Other long term (current) drug therapy
CPT/HCPCS: 36415; 80053; 83690; 84484; 85025; 85610; 93005; 99283; 99284

== ENCOUNTER 2024-03-01 05:09 | Outpatient (CLI) | payer MEDICARE, MEDICAID | END 2024-03-01 23:59 | disposition critical access hospital (66) | LOC: EMS 05:09 | DX: H57.11 Ocular pain, right eye (principal); M79.605 Pain in left leg; M79.89 Other specified soft tissue disorders; I82.402 Acute embolism and thrombosis of unspecified deep veins of left lower extremity; Z79.01 Long term (current) use of anticoagulants | CPT/HCPCS: A0425; A0429 ==

== ENCOUNTER 2024-03-01 05:31 | Emergency (ER) | payer MEDICARE, MEDICAID ==
--- NOTE | 2024-03-01 06:12 | ED Physician Documentation ---
PD HPI OPHTHO - Stated complaint Stated Complaint: EYE PAIN, LEFT LEG SWELLING X 10 DAYS - Chief complaint Chief Complaint: Heent - History obtained from History obtained from: Patient, EMS - Additional information Additional information: HPI from patient, EMS. MICHELLE. Patient's chief concern/complaint is right eye pain, episodic x 3-4 days. There was no inciting event including no injury. Denies visual changes. Pain waxes and wanes when presents but no ameliorating factors. Pain is limited to the right eye and not the surrounding tissues (no periorbital c/o, denies GUAN). The only exacerbating factor is with pressure applied to the right side of her nose (over bony nasal bridge). She had expressed concern regarding LLE swelling to EMS and triaging ED RN, but she tells me she is only concerned about her eye c/o at this time. 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 - Present Medications Home Medications: Ambulatory Orders Medication Instructions Recorded Confirmed hydroCHLOROthiazide 25 mg PO DAILY 03/15/16 03/01/24 [Hydrochlorothiazide] Gabapentin [Neurontin] 200 mg PO BID 02/04/21 03/01/24 HYDROcod/ACETAM 5/325 [[place] 5/325] 1 - 2 tab PO Q6H PRN #20 tablet 11/13/21 03/01/24 Apixaban [Eliquis] 5 mg PO BID #70 tablet 01/13/24 03/01/24 Buspirone HCl 15 mg PO BID 01/13/24 03/01/24 Citalopram Hydrobromide 40 mg PO DAILY 01/13/24 03/01/24 [Citalopram HBr] Losartan [Cozaar] 50 mg PO DAILY 01/13/24 03/01/24 - Allergies Allergies/Adverse Reactions: Allergies Allergy/AdvReac Type Severity Reaction Status Date / Time Sulfa (Sulfonamide Allergy Itching Verified 03/01/24 05:37 Antibiotics) - Social History Does the pt smoke?: Yes Smoking Status: Current every day smoker Does the pt drink ETOH?: No Does the pt have substance abuse?: No - Immunizations Immunizations are current?: No Immunizations: TDAP >10years/unknown - POLST Patient has POLST: No PD ED PE NORMAL - Vitals Vital signs reviewed: Yes - General General: Alert and oriented X 3, No acute distress, Well developed/nourished - HEENT HEENT: Atraumatic, PERRL, EOMI PD ED PE EXPANDED - Eyes Eyes: PERRL, EOMI, Normal eyelids, Nl conjunctiva/sclera, Normal corneas, Anterior chambers clear, Temp arteries nontender. No: Exudate, Corneal abrasion, Fluorescein uptake Results - Vitals Vitals: Vital Signs - 24 hr 03/01/24 03/01/24 03/01/24 05:33 06:25 07:30 Temperature 36.8 C 36.7 C Heart Rate 73 62 62 Respiratory 18 14 17 Rate Blood Pressure 173/83 H 147/72 H 157/95 H O2 Saturation 99 98 98 Oxygen O2 Source Room air PD Medical Decision Making - ED course Complexity details: considered differential, d/w patient ED course: No fluorescein uptake right eye. IOP measured with iCare instrument with results ranging from 15-18 (6 measurements x 2 for total of 12 measurements). Etiology of her right eye pain is not apparent at this time. Return precautions reviewed, advised to seek follow up with her director data processing ([place] Departure - Departure Disposition: 01 Home, Self Care Clinical Impression: Pain, eye, right Condition: Good Instructions: ED Acute Pain [facility] Comments: The cause of your eye pain is not apparent at this time. There is no evidence of infection such as conjunctivitis ("pinkeye"), there is no evidence of corneal abrasion on the exam, and your intraocular pressures were normal (this rules out glaucoma). Contact your director data processing today to arrange for your the next available appointment for further evaluation. Discharge Date/Time: 03/01/24 07:31
[2024-03-01 06:31] VITALS: O2SAT 98
[2024-03-01] MEDS: PROPARACAINE 0.5% OPHTH DROPS 15 ML RIGHTEYE STA (06:31)
[2024-03-01 07:37] VITALS: BP 157/95
== END 2024-03-01 07:31 | disposition home or self-care (01) ==
LOC: EDUNIT# → ED 05:31
DX: H57.11 Ocular pain, right eye (principal); I10 Essential (primary) hypertension; E78.00 Pure hypercholesterolemia, unspecified; J44.9 Chronic obstructive pulmonary disease, unspecified; E11.9 Type 2 diabetes mellitus without complications; Z86.718 Personal history of other venous thrombosis and embolism; Z87.442 Personal history of urinary calculi; Z79.01 Long term (current) use of anticoagulants; Z79.899 Other long term (current) drug therapy; F17.200 Nicotine dependence, unspecified, uncomplicated
CPT/HCPCS: 99283; J3490

== ENCOUNTER 2024-03-22 14:09 | Outpatient (CLI) | payer MEDICARE, MEDICAID ==
--- NOTE | 2024-03-22 17:00 | CT Report ---
PROCEDURE: Head WO INDICATIONS: EYE PAIN TECHNIQUE: Noncontrast 4.5 mm thick angled axial sections acquired from the foramen magnum to the vertex. For r adiation dose reduction, the following was used: automated exposure control, adjustment of mA and/or kV according to patient size. COMPARISON: None. FINDINGS: Image quality: Excellent. CSF spaces: Basal cisterns are patent. No extra-axial fluid collections. Ventricles are normal in size and shape. Brain: No midline shift. No intracranial masses or hemorrhage. Lopez-white matter interface is norm al. Age-appropriate brain parenchymal volume loss and chronic small vessel ischemic change can be se en. Skull and face: Calvarium and visualized facial bones are intact, without suspicious lesions. Hypero stosis frontalis is incidentally noted, which is not frankly abnormal for a female patient of this ag e. Sinuses: Visualized sinuses and mastoids are clear. IMPRESSION: No acute intracranial pathology. Reviewed by: Shan Valentine MD on 03/22/2024 3:58 PM AKDT Approved by: Shan Valentine MD on 03/22/2024 3:58 PM AKDT Station ID: [id number]
== END 2024-03-22 14:10 | disposition home or self-care (01) ==
LOC: DI 14:09
PROVIDERS: ATTEND Nurse Practitioner Family
DX: H57.13 Ocular pain, bilateral (principal)

== ENCOUNTER 2024-03-28 15:36 | Outpatient (CLI) | payer MEDICARE, MEDICAID ==
--- NOTE | 2024-03-29 12:49 | Ultrasound Report ---
PROCEDURE: Duplex Ext Veins Left INDICATIONS: DEEP VEIN PHLEBITIS AND THROMBOPHLEBITIS OF LEG TECHNIQUE: Real-time imaging, as well as color and pulse Doppler interrogation, were performed of the lower extr emity deep veins from the inguinal ligament to the popliteal fossa. Attempted visualization of the ca lf veins was performed. COMPARISON: 01/13/2024 FINDINGS: Persistent filling defect within the popliteal vein. Remaining vessels are patent and compr essible. 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 Reviewed by: Flex Hernandez MD on 03/29/2024 12:48 PM PDT Approved by: Flex Hernandez MD on 03/29/2024 12:48 PM PDT Station ID: [id number]
== END 2024-03-28 15:37 | disposition home or self-care (01) ==
LOC: DI 15:36
PROVIDERS: ATTEND Nurse Practitioner Family
DX: I80.202 Phlebitis and thrombophlebitis of unspecified deep vessels of left lower extremity (principal)